=== PATIENT | male | born 1955 | race Caucasian/White ===

== ENCOUNTER → 2019-07-20 | Outpatient (CLI) | payer MEDICARE | END | disposition home or self-care (01) | LOC: RADMRIMAIN 07:15 | PROVIDERS: ATTEND Orthopaedic Surgery | DX: Z53.9 Procedure and treatment not carried out, unspecified reason (principal) ==

== ENCOUNTER → 2019-07-21 | Outpatient (CLI) | payer MEDICARE ==
--- NOTE | 2019-07-22 09:40 | MR ---
EXAMINATION TYPE: MR shoulder RT wo con DATE OF EXAM: 07/21/2019 COMPARISON: Outside x-ray dated 07/12/2019 HISTORY: Pain TECHNIQUE: Multiplanar, multisequence imaging of the right shoulder is performed without contrast. FINDINGS: Rotator Cuff: There is marked thickening and partial retraction of the distal 2.6 cm of the supraspinatus tendon co mpatible with severe tendinopathy and a 1.6 cm through thickness tear. Retraction is seen to the leve l of the medial margin of the greater tuberosity. Subscapularis tendon appears intact. Fluid signal seen adjacent to the subscapularis tendon and muscl e may represent fluid within the bursa and bursitis. Infraspinatus tendon demonstrates tendinopathy at the insertion of its anterior fibers. No through th ickness tear. Degenerative intrasubstance tear suspected at the insertion. Acromioclavicular Joint: There is hypertrophic arthropathy of the AC joint with mass effect and impin gement supraspinatus tendon. Glenohumeral Joint: Mild narrowing of the glenohumeral joint. There is a trace amount of fluid in the joint space. Ill-definition of the inferior glenohumeral ligament suggestive of strain. Partial tear not excluded. Labrum: Abnormal morphology in appearance to the anterior superior labrum extending posteriorly. Biceps Tendon: The long head of biceps is in normal location within bicipital groove. Increased fluid surrounding compatible tendinosis. Within the rotator interval there is marked thickening of the bic eps tendon compatible with severe tendinopathy and partial tear. Bone marrow signal: Benign cystic changes involving the head of the humerus. IMPRESSION: 1. Severe diffuse thickening and increased signal throughout the distal 2.6 cm of the supraspinatus t endon compatible with severe arthropathy and degenerative tear. There is a partial through thickness tear measuring 1.6 cm with partial retraction as discussed above. 2. At the insertion of the infraspinatus tendon there is thickening of the anterior fibers compatible severe tendinosis and partial tear. 3. Suspect SLAP tear. Additionally, within the rotator interval there is marked thickening and increa sed signal the biceps tendon compatible with severe tendinosis and partial tear. 4. Ill-definition of the inferior glenohumeral ligament may be secondary to motion correlate for liga mentous strain. Partial tear not excluded. 5. AC joint arthropathy with impingement.
== END | disposition home or self-care (01) ==
LOC: RADMRIMAIN 19:07
PROVIDERS: ATTEND Orthopaedic Surgery
DX: M75.111 Incomplete rotator cuff tear or rupture of right shoulder, not specified as traumatic (principal); M12.811 Other specific arthropathies, not elsewhere classified, right shoulder

== ENCOUNTER → 2019-07-29 | Outpatient (CLI) | payer MEDICARE ==
[2019-07-29 12:14] LABS: Basophils % (A) 1 %; Eosinophils # (A) 0.3 k/uL (0-0.7); Eosinophils % (A) 5 %; HCT 49.3 % (39.0-53.0); HGB 15.6 gm/dL (13.0-17.5); Lymphocytes # (A) 1.6 k/uL (1.0-4.8); Lymphocytes % (A) 29 %; MCH 30.5 pg (25.0-35.0); MCHC 31.6 g/dL (31.0-37.0); MCV 96.7 fL (80.0-100.0); Mean Platelet Volume 8.3; Monocytes # (A) 0.5 k/uL (0-1.0); Monocytes % (A) 9 %; Neutrophils # (A) 2.9 k/uL (1.3-7.7); Neutrophils % (A) 54 %; Platelet Count 183 k/uL (150-450); RBC 5.09 m/uL (4.30-5.90); RDW 13.3 % (11.5-15.5); WBC 5.4 k/uL (3.8-10.6)
[2019-07-29 12:20] LABS: Potassium 4.7 mmol/L (3.5-5.1)
== END | disposition home or self-care (01) ==
LOC: LABPAT 11:19
PROVIDERS: ATTEND Orthopaedic Surgery
DX: Z01.818 Encounter for other preprocedural examination (principal); Z01.812 Encounter for preprocedural laboratory examination; M75.41 Impingement syndrome of right shoulder; M75.01 Adhesive capsulitis of right shoulder
CPT/HCPCS: 36415; 80051; 85025; 93005

== ENCOUNTER 2019-08-03 13:45 | Day surgery (SDC) | payer MEDICARE ==
[2019-07-30 16:04] VITALS: BMI 25.1
--- NOTE | 2019-08-02 09:53 | HP ---
HISTORY AND PHYSICAL CHIEF COMPLAINT: Right shoulder pain. HISTORY OF PRESENT ILLNESS: The patient is a 64-year-old, right-hand dominant, retired gentleman who presents with right shoulder pain after an initial fall in August of 2018 in his garage. He has had multiple falls since. He is having pain with overhead use and activity. He notes it has progressively worsened. PAST MEDICAL HISTORY: Significant for cervical and lumbar degenerative disk disease. PAST SURGICAL HISTORY: Significant for inguinal hernia repair in addition to lumbar spine surgery. CURRENT MEDICATION: Ibuprofen. He denies drug allergies. FAMILY HISTORY: Significant for heart disease. SOCIAL HISTORY: Negative for current tobacco or alcohol use. 16 POINT REVIEW OF SYSTEMS: Otherwise reviewed and is noncontributory. PHYSICAL EXAMINATION: On examination, the patient is approximately 5 foot 10, 175 pounds of endomorphic habitus. HEENT: Exam is nonfocal. Neck is supple. On examination of his right shoulder, he is tender about the anterior subacromial space in the bicipital groove. He has moderate subacromial crepitus. Active range of motion forward elevation 90 degrees external rotation with arm at side 25 degrees internal rotation to the buttock. Passively I am able to forward elevate him to 104-95 degrees. Motor strength is 5-/5 for abduction and external rotation. Impingement test, Neer in the ER tests, and Speed test are positive. He has marked guarding. He has mild pain with cross-body abduction. His distal neurovascular appears intact in the right upper extremity. MRI report from 07/21/2019 shows AC joint arthritis along with a rotator cuff tear involving the supraspinatus with retraction. An an associated SLAP lesion is noted. IMPRESSION: 1. Right shoulder adhesive capsulitis. 2. Right shoulder impingement with symptomatic rotator cuff tear. 3. Right acromioclavicular joint arthritis. RECOMMENDATIONS: I talked to the patient at length regarding his condition along with treatment options. This point he remains quite symptomatic and limited because of pain, stiffness, and weakness. After thorough discussion, he opts to proceed with surgery. We will plan to proceed with right shoulder arthroscopic arthroscopy with subacromial decompression, rotator cuff repair versus debridement, acromioclavicular area, distal clavicular resection along with manipulation under anesthesia. We will likely perform that as an outpatient procedure. Risks and benefits were discussed at length in layman's terms. MMODL / IJN: [id number] /
[~2019-08-03 13:45] MED LIST: DEXAMETHASONE SOD PHOSPHATE 10 MG/ML 1 ML VIAL IV ONE; HYDROmorphone 0.5 MG/0.5 ML SYRINGE IVP PRN; LACTATED RINGERS 1,000 ML IV SCH; LIDOCAINE 1% 20 ML VIAL (10MG/ML) FOR IV START INTRADERMA PRN; ONDANSETRON 4 MG/2 ML VIAL IVP ONE; SCOPOLAMINE 1.5MG/72HR PATCH TRANSDERM ONE
[2019-08-03] MEDS ORDERED: MIDAZOLAM 2 MG/2 ML VIAL IVP ONE (14:47)
[2019-08-03] MEDS ORDERED: fentaNYL (PF) 50 MCG/ML 2 ML AMP IV ONE (14:48)
[2019-08-03] MEDS ORDERED: DEXAMETHASONE SOD PHOSPHATE 4 MG/ML 1 ML VIAL ONE (15:51)
[2019-08-03] MEDS ORDERED: MIDAZOLAM 2 MG/2 ML VIAL ONE (15:51)
[2019-08-03] MEDS ORDERED: ROPIVACAINE 5 MG/ML 30 ML VIAL ONE (15:51)
[2019-08-03] MEDS ORDERED: PHENYLEPHRINE-0.9% NACL SYG 1 MG/10 ML SYRINGE ONE (15:51)
[2019-08-03] MEDS ORDERED: LIDOCAINE 1% INJ 10MG/ML (20 ML MDV) ONE (15:51)
[2019-08-03] MEDS ORDERED: SUCCINYLCHOLINE CHLORIDE 100 MG/5 ML SYR IV ONE (15:51)
[2019-08-03] MEDS ORDERED: PROPOFOL 10 MG/ML 20 ML VIAL IV ONE (15:51)
[2019-08-03] MEDS ORDERED: fentaNYL (PF) 50 MCG/ML 2 ML AMP ONE (15:51)
[2019-08-03] MEDS ORDERED: EPINEPHrine (PF) 1 ML in SODIUM CHLORIDE 0.9% IRRIGATIO 3,000 ML IRRIGATION ONE ×8 (16:25)
--- NOTE | 2019-08-03 17:35 | P.OP ---
Date of Procedure: 08/03/19 Preoperative Diagnosis: Right shoulder adhesive capsulitis/symptomatic rotator cuff tear Postoperative Diagnosis: Same in addition to high-grade partial-thickness tear long head bicepsintra- articular, acromioclavicular joint arthritis. Procedure(s) Performed: Right shoulder arthroscopic subacromial decompression/distal clavicular resection/biceps tenotomy/rotator cuff repair/manipulation under anesthesia Implants: Arthrex 4.75 mm swivel lock anchor 2, 5.5 mm swivel lock anchor 2 Anesthesia: HERNANDO, regional Surgeon: Giorgio Summers Security Alarm Technician #1: Michelet Snider Estimated Blood Loss (ml): 10 Pathology: none sent Condition: stable Disposition: PACU Indications for Procedure: The patient's a 64-year-old male who presents with persistent/progressive right shoulder pain and stiffness after a previous injury despite conservative measures. He discussion of the risks and benefits of operative intervention versus continued conservative measures was made with patient. He opted to proceed with surgery. Operative risks to include infection, neurovascular injury, possible tendon rerupture, possible recurrence of stiffness and need for subsequent procedures was discussed. Informed consent was obtained. Operative Findings: As below Description of Procedure: The patient was brought to the operating room, and after induction of general anesthesia was placed in a beachchair position. A preoperative interscalene block was placed for postoperative analgesia. I examined the right shoulder. There was significant block to passive motion. Gentle manipulation was then performed first with the arm at the side obtaining 60 of external rotation and then full forward elevation. Moderate adhesions were encountered. The right upper extremity was prepped and draped in normal fashion. The bony outlines the acromion, distal clavicle, and coracoid process were outlined with a skin marker. The glenohumeral joint was inflated with 50 mL of saline utilizing a spinal needle from posterior approach. A posterior portal was made through a 5 mm skin incision 1 cm medial and inferior to the posterior lateral border time. A blunt trocar was used to easily into the joint. Diagnostic arthroscopy was performed. An anterior portal was made just lateral to the coracoid process entering the joint above the subscapularis tendon. The subscapularis tendon appeared to be intact. Anterior labrum was intact. The inferior recess was inspected. The posterior labrum was intact. There was a high-grade partial- thickness tear of the long head of the biceps involving interarticular portion. It was elected to proceed with release at this point. This was released from the superior labrum with electrocautery and was allowed to retract to the bicipital groove. On inspection the rotator cuff, a full-thickness tear involving the supraspinatus and a portion of the infraspinatus was noted measuring 4 cm. There was minimal retraction. A lateral portal was made 2 charlene timeters inferior to the anterior lateral border of the acromion. The rotator cuff was then easily brought back to the greater tuberosity. The soft tissue on the undersurface of the acromion was debrided with a motorized shaver and electrocautery clearly defining the anterior medial and lateral borders as well as the distal clavicle. An anterior inferior acromioplasty was performed with a motorized belinda starting anterolateral, then extending this posteriorly, then extending this medially. I converted to a flat acromion and this was verified in the posterior and lateral viewing portals. The distal 4 mm of the clavicle was resected utilizing a motorized bur as there were is significant arthritis and impingement on the subacromial space. The greater tuberosity was lightly decorticating with a shaver down to a bleeding bony surface. An accessory superior lateral portals made just off the lateral edge of the acromion for anchor placement. 2 anchors were then placed just off the articular surface with the appropriate starting awl. 4.75 mm anchors preloaded with #2 fiber tape were placed. Good purchase was obtained. These fiber tapes were then passed the rotator cuff with a scorpion suture passer. A lateral row was created crisscrossing these tapes. 5.5 mm swivel lock anchors x 2 were placed laterally. Good purchase was obtained. Final arthroscopic view showed adequate compression at the footprint. The arthroscope was then removed. The portals were closed with simple 3-0 nylon sutures. A sterile dressing was applied in addition to a sling. The patient was then awoken from general anesthesia and transferred to recovery room in good condition. Blood loss was estimated at 10 mL. No complications were incurred. Sponge and needle counts were correct in the case. Romario CABALLERO assisted and the major components of the case to include arm positioning, anchor placement, and rotator cuff repair.
[2019-08-03 17:39] VITALS: TEMP 97.4
[2019-08-03] MEDS ORDERED: LACTATED RINGERS 1,000 ML IV ONE (17:40)
[2019-08-03 18:45] VITALS: RESP 20
[2019-08-03 19:00] VITALS: BP 133/80; PULSE 84
== END 2019-08-03 19:12 | disposition home or self-care (01) ==
LOC: OR 13:45
PROVIDERS: ATTEND Orthopaedic Surgery
DX: S46.011A Strain of muscle(s) and tendon(s) of the rotator cuff of right shoulder, initial encounter (principal); S46.111A Strain of muscle, fascia and tendon of long head of biceps, right arm, initial encounter; W19.XXXA Unspecified fall, initial encounter; M75.01 Adhesive capsulitis of right shoulder; M19.011 Primary osteoarthritis, right shoulder; M50.30 Other cervical disc degeneration, unspecified cervical region; M51.36 Other intervertebral disc degeneration, lumbar region; Z79.1 Long term (current) use of non-steroidal anti-inflammatories (NSAID); Z82.49 Family history of ischemic heart disease and other diseases of the circulatory system; H91.90 Unspecified hearing loss, unspecified ear; Z79.899 Other long term (current) drug therapy
CPT/HCPCS: 64415; 76942; 29826; 29827; 29824; C1713 ×2; C1894; J2250; J1100 ×2; J0690; J2405; J0171; J2001; J3010; J2795; J2370; J0330; J2704

== ENCOUNTER 2020-04-29 13:47 | Emergency (ER) | payer MEDICARE ==
--- NOTE | 2020-04-29 14:27 | XR ---
EXAMINATION TYPE: XR chest 2V DATE OF EXAM: 04/29/2020 COMPARISON: NONE HISTORY: Chest pain. TECHNIQUE: Frontal and lateral views of the chest are obtained. FINDINGS: There is no focal air space opacity, pleural effusion, or pneumothorax seen. The cardiac silhouette size is within normal limits. The osseous structures are intact. IMPRESSION: No acute cardiopulmonary process.
[2020-04-29 14:37] LABS: Basophils % (A) 0 %; Eosinophils # (A) 0.1 k/uL (0-0.7); Eosinophils % (A) 2 %; HCT 49.9 % (39.0-53.0); HGB 15.7 gm/dL (13.0-17.5); Lymphocytes # (A) 1.5 k/uL (1.0-4.8); Lymphocytes % (A) 24 %; MCH 30.2 pg (25.0-35.0); MCHC 31.4 g/dL (31.0-37.0); MCV 96.1 fL (80.0-100.0); Mean Platelet Volume 8.9; Monocytes # (A) 0.4 k/uL (0-1.0); Monocytes % (A) 6 %; Neutrophils # (A) 4.1 k/uL (1.3-7.7); Neutrophils % (A) 67 %; Platelet Count 205 k/uL (150-450); RBC 5.19 m/uL (4.30-5.90); RDW 13.3 % (11.5-15.5); WBC 6.2 k/uL (3.8-10.6)
[2020-04-29 14:53] LABS: Potassium 4.6 mmol/L (3.5-5.1)
--- NOTE | 2020-04-29 14:53 | ED ---
General Adult HPI - General Chief complaint: Chest Pain Stated complaint: chest pain Time Seen by Provider: 04/29/20 13:53 Source: patient, RN notes reviewed, old records reviewed Mode of arrival: ambulatory Limitations: physical limitation - History of Present Illness Initial comments: 64-year-old male presenting for evaluation of cough, chest congestion and tightness. Patient was sent from urgent care for evaluation of chest tightness concern for ACS. He has had no chest pain. No diaphoresis no vomiting. He states he's felt somewhat winded with exertion. He has no history of CAD, no history of asthma or COPD. No history of congestive heart failure. He is fairly healthy. Denies fever. Denies nasal congestion or sore throat. - Related Data Home Medications Medication Instructions Recorded Confirmed Tadalafil [Cialis] 5 mg PO DAILY 07/30/19 07/30/19 Cholecalciferol [Vitamin D3 (25 2,000 unit PO DAILY 04/29/20 04/29/20 Mcg = 1000 Iu)] Magnesium Gluconate [Magonate] 500 mg PO DAILY 04/29/20 04/29/20 Vit C/Ascorb Sod/Multivit-Min 500 mg PO DAILY 04/29/20 04/29/20 [Emergen-C 500 mg Chewable Tab] Zinc 50 mg PO DAILY 04/29/20 04/29/20 Allergies Allergy/AdvReac Type Severity Reaction Status Date / Time No Known Allergies Allergy Verified 04/29/20 15:38 Review of Systems ROS Statement: Those systems with pertinent positive or pertinent negative responses have been documented in the HPI. ROS Other: All systems not noted in ROS Statement are negative. Past Medical History Past Medical History: Hearing Disorder / Deafness, Osteoarthritis (OA) History of Any Multi-Drug Resistant Organisms: None Reported Past Surgical History: Back Surgery, Hernia Repair, Tonsillectomy Additional Past Surgical History / Comment(s): LAMINECTOMY, BACK FUSION , HERNIA REPAIR X3 Past Anesthesia/Blood Transfusion Reactions: No Reported Reaction Past Psychological History: No Psychological Hx Reported Smoking Status: Never smoker Past Alcohol Use History: Rare Past Drug Use History: None Reported - Past Family History Mother Family Medical History: No Reported History General Exam Limitations: physical limitation General appearance: alert, in no apparent distress Head exam: Present: atraumatic, normocephalic Eye exam: Present: normal appearance, PERRL ENT exam: Present: normal exam Neck exam: Present: normal inspection. Absent: tenderness, meningismus Respiratory exam: Present: decreased breath sounds (Diminished on the right). Absent: respiratory distress Cardiovascular Exam: Present: regular rate, normal rhythm GI/Abdominal exam: Present: soft. Absent: distended, tenderness, guarding Extremities exam: Present: normal inspection, normal capillary refill. Absent: pedal edema, calf tenderness Neurological exam: Present: alert, oriented X3, CN II-XII intact. Absent: motor sensory deficit Psychiatric exam: Present: normal affect, normal mood Skin exam: Present: warm, dry, intact. Absent: cyanosis, diaphoretic Course Vital Signs 04/29/20 04/29/20 13:49 14:35 Temperature 97.1 F L Pulse Rate 72 Pulse Rate [ 75 Active Directory Specialist ] Respiratory 18 Rate Blood Pressure 137/78 O2 Sat by Pulse 97 Oximetry EKG Findings - EKG Comments: EKG Findings:: EKG: Sinus rhythm with first-degree AV block, rate of 67, CT interval 216, QRS duration 92, QTC 426, no ST segment elevation. Medical Decision Making - Medical Decision Making 64-year-old male with cough congestion, exertional dyspnea. Patient well- appearing with stable vitals, no hypoxia. Chest x-rays negative for focal pneumonia or acute findings. Normal CBC, normal CMP, negative troponin, negative BNP, patient is Rodas virus positive. Overall he states his symptoms have improved although still present for the past one week. He is told to quarantine for 14 days. He will return with any worsening dyspnea, worsening symptoms. and patient with discharge. - Lab Data Result diagrams: 04/29/20 14:17 04/29/20 14:17 Lab Results 04/29/20 04/29/20 04/29/20 Range/Units 14:17 14:17 14:17 WBC 6.2 (3.8-10.6) k/uL RBC 5.19 (4.30-5.90) m/uL Hgb 15.7 (13.0-17.5) gm/dL Hct 49.9 (39.0-53.0) % MCV 96.1 (80.0-100.0) fL MCH 30.2 (25.0-35.0) pg MCHC 31.4 (31.0-37.0) g/dL RDW 13.3 (11.5-15.5) % Plt Count 205 (150-450) k/uL MPV 8.9 Neutrophils % 67 % Lymphocytes % 24 % Monocytes % 6 % Eosinophils % 2 % Basophils % 0 % Neutrophils # 4.1 (1.3-7.7) k/uL Lymphocytes # 1.5 (1.0-4.8) k/uL Monocytes # 0.4 (0-1.0) k/uL Eosinophils # 0.1 (0-0.7) k/uL Basophils # 0.0 (0-0.2) k/uL PT 10.3 (9.0-12.0) sec INR 1.0 (<1.2) APTT 24.1 (22.0-30.0) sec Sodium 138 (137-145) mmol/L Potassium 4.6 (3.5-5.1) mmol/L Chloride 106 (98-107) mmol/L Carbon Dioxide 23 (22-30) mmol/L Anion Gap 9 mmol/L BUN 28 H (9-20) mg/dL Creatinine 0.75 (0.66-1.25) mg/dL Est GFR (CKD-EPI)AfAm >90 (>60 ml/min/1.73 sqM) Est GFR (CKD-EPI)NonAf >90 (>60 ml/min/1.73 sqM) Glucose 97 (74-99) mg/dL Calcium 8.9 (8.4-10.2) mg/dL Magnesium 2.1 (1.6-2.3) mg/dL Total Bilirubin 0.9 (0.2-1.3) mg/dL AST 53 (17-59) U/L ALT 45 (4-49) U/L Alkaline Phosphatase 79 (38-126) U/L Troponin I (0.000-0.034) ng/mL NT-Pro-B Natriuret Pep pg/mL Total Protein 7.8 (6.3-8.2) g/dL Albumin 4.2 (3.5-5.0) g/dL Coronavirus (PCR) (Not Detectd) 04/29/20 04/29/20 04/29/20 Range/Units 14:17 14:17 14:17 WBC (3.8-10.6) k/uL RBC (4.30-5.90) m/uL Hgb (13.0-17.5) gm/dL Hct (39.0-53.0) % MCV (80.0-100.0) fL MCH (25.0-35.0) pg MCHC (31.0-37.0) g/dL RDW (11.5-15.5) % Plt Count (150-450) k/uL MPV Neutrophils % % Lymphocytes % % Monocytes % % Eosinophils % % Basophils % % Neutrophils # (1.3-7.7) k/uL Lymphocytes # (1.0-4.8) k/uL Monocytes # (0-1.0) k/uL Eosinophils # (0-0.7) k/uL Basophils # (0-0.2) k/uL PT (9.0-12.0) sec INR (<1.2) APTT (22.0-30.0) sec Sodium (137-145) mmol/L Potassium (3.5-5.1) mmol/L Chloride (98-107) mmol/L Carbon Dioxide (22-30) mmol/L Anion Gap mmol/L BUN (9-20) mg/dL Creatinine (0.66-1.25) mg/dL Est GFR (CKD-EPI)AfAm (>60 ml/min/1.73 sqM) Est GFR (CKD-EPI)NonAf (>60 ml/min/1.73 sqM) Glucose (74-99) mg/dL Calcium (8.4-10.2) mg/dL Magnesium (1.6-2.3) mg/dL Total Bilirubin (0.2-1.3) mg/dL AST (17-59) U/L ALT (4-49) U/L Alkaline Phosphatase (38-126) U/L Troponin I 0.016 (0.000-0.034) ng/mL NT-Pro-B Natriuret Pep 116 pg/mL Total Protein (6.3-8.2) g/dL Albumin (3.5-5.0) g/dL Coronavirus (PCR) Detected A (Not Detectd) Disposition Clinical Impression: 2019 novel coronavirus disease (COVID-19) Disposition: HOME SELF-CARE Condition: Fair Instructions (If sedation given, give patient instructions): Viral Pneumonia (ED), Viral Syndrome (ED) Additional Instructions: You have been diagnosed with coronavirus. Please return to emergency department with worsening cough or difficulty breathing, any worsening shortness of breath. Please quarantine yourself for 14 days. Is patient prescribed a controlled substance at d/c from ED?: No Referrals: Shazia Cleveland DO [Primary Care Provider] - 1-2 days Time of Disposition: 15:52
[2020-04-29 14:54] LABS: ALT 45 U/L (4-49); AST 53 U/L (17-59); African American GFR (CKD) >90 (>60 ml/min/1.73 sqM); Albumin 4.2 g/dL (3.5-5.0); Alkaline Phosphatase 79 U/L (38-126); Anion Gap 9 mmol/L; Blood Urea Nitrogen 28 mg/dL (9-20); Calcium 8.9 mg/dL (8.4-10.2); Carbon Dioxide 23 mmol/L (22-30); Chloride 106 mmol/L (98-107); Glucose 97 mg/dL (74-99); Magnesium 2.1 mg/dL (1.6-2.3); Non-African American GFR(CKD) >90 (>60 ml/min/1.73 sqM); Sodium 138 mmol/L (137-145); Total Bilirubin 0.9 mg/dL (0.2-1.3); Total Protein 7.8 g/dL (6.3-8.2)
[2020-04-29 15:04] LABS: Partial Thromboplastin Time 24.1 sec (22.0-30.0); Prothrombin Time 10.3 sec (9.0-12.0)
[2020-04-29 16:26] VITALS: BP 127/70; PULSE 79; RESP 19; TEMP 98.3
== END 2020-04-29 16:26 | disposition home or self-care (01) ==
LOC: EC 13:47
DX: U07.1 COVID-19 (principal); Z79.899 Other long term (current) drug therapy; Z98.1 Arthrodesis status
CPT/HCPCS: 36415; 71046; 80053; 83735; 83880; 84484; 85025; 85610; 85730; 87635; 93005; 99285

== ENCOUNTER 2022-11-07 01:33 | Emergency (ER) | payer MEDICARE ==
[2022-11-07 01:41] VITALS: TEMP 97.6
[2022-11-07 05:41] LABS: Appearance,Urine Clear (Clear); Bilirubin,Urine Negative (Negative); Blood,Urine Negative (Negative); Color,Urine Yellow; Glucose,Urine (UA) Negative (Negative); Ketones,Urine 2+ (Negative); Leukocyte Esterase,Urine Negative (Negative); Nitrite,Urine Negative (Negative); PH, Urine 5.5 (5.0-8.0); Protein,Urine Trace (Negative); Specific Gravity,Urine 1.023 (1.001-1.035); Urobilinogen,Urine <2.0 mg/dL (<2.0)
[2022-11-07 05:50] LABS: Basophils % (A) 0 %; Eosinophils # (A) 0.1 k/uL (0-0.7); Eosinophils % (A) 2 %; HGB 15.6 gm/dL (13.0-17.5); Lymphocytes # (A) 0.9 k/uL (1.0-4.8); Lymphocytes % (A) 12 %; MCHC 32.5 g/dL (31.0-37.0); MCV 95.4 fL (80.0-100.0); Monocytes # (A) 0.4 k/uL (0-1.0); Monocytes % (A) 6 %; Neutrophils # (A) 5.7 k/uL (1.3-7.7); Neutrophils % (A) 79 %; Platelet Count 162 k/uL (150-450); RBC 5.03 m/uL (4.30-5.90); RDW 13.8 % (11.5-15.5); WBC 7.2 k/uL (3.8-10.6)
[2022-11-07 05:56] LABS: ALT 23 U/L (4-49); AST 29 U/L (17-59); African American GFR (CKD) >90 (>60 ml/min/1.73 sqM); Albumin 3.6 g/dL (3.5-5.0); Alkaline Phosphatase 66 U/L (38-126); Anion Gap 9 mmol/L; Blood Urea Nitrogen 23 mg/dL (9-20); Calcium 8.5 mg/dL (8.4-10.2); Carbon Dioxide 22 mmol/L (22-30); Chloride 104 mmol/L (98-107); Glucose 108 mg/dL (74-99); Non-African American GFR(CKD) >90 (>60 ml/min/1.73 sqM); Potassium 3.8 mmol/L (3.5-5.1); Sodium 135 mmol/L (137-145); Total Bilirubin 0.9 mg/dL (0.2-1.3); Total Protein 6.5 g/dL (6.3-8.2)
[2022-11-07] MEDS ORDERED: SODIUM CHLORIDE 0.9% 1,000 ML IV ONE (06:18)
[2022-11-07] MEDS ORDERED: ONDANSETRON 4 MG/2 ML VIAL IVP STA (06:19)
--- NOTE | 2022-11-07 06:44 | ED ---
General Adult HPI - General Chief complaint: Urogenital Stated complaint: ABD Pain Time Seen by Provider: 11/07/22 06:08 Source: patient, RN notes reviewed Mode of arrival: wheelchair Limitations: no limitations - History of Present Illness Initial comments: 67-year-old male presents emergency Department with chief complaint of right- sided abdominal pain. Patient states that he had a hernia repair 6 years ago states she's had some on-and-off issues but states yesterday he started developing increasing pain states he had some mild diarrhea within the pain worsened. Patient also noted to be slight nausea, headache. Patient states he did not eat or drink much yesterday but did try taking some ibuprofen for discomfort. Patient states that he of metal night bathroom and states he felt very lightheaded felt there is a pass out and which she has passed out several times past but is concerned once is increasing pain on the right side. He has no dysuria no hematuria - Related Data Home Medications Medication Instructions Recorded Confirmed Cholecalciferol [Vitamin D3 (25 2,000 unit PO DAILY 04/29/20 04/29/20 Mcg = 1000 Iu)] Magnesium Gluconate [Magonate] 500 mg PO DAILY 04/29/20 04/29/20 Vit C/Ascorb Sod/Multivit-Min 500 mg PO DAILY 04/29/20 04/29/20 [Emergen-C 500 mg Chewable Tab] Zinc 50 mg PO DAILY 04/29/20 04/29/20 tadalafiL [Cialis] 10 mg PO DAILY 04/29/20 04/29/20 Allergies Allergy/AdvReac Type Severity Reaction Status Date / Time No Known Allergies Allergy Verified 11/07/22 01:38 Review of Systems ROS Statement: Those systems with pertinent positive or pertinent negative responses have been documented in the HPI. ROS Other: All systems not noted in ROS Statement are negative. Past Medical History Past Medical History: Hearing Disorder / Deafness, Osteoarthritis (OA) History of Any Multi-Drug Resistant Organisms: None Reported Past Surgical History: Back Surgery, Hernia Repair, Tonsillectomy Additional Past Surgical History / Comment(s): LAMINECTOMY, BACK FUSION , HERNIA REPAIR X3 Past Anesthesia/Blood Transfusion Reactions: No Reported Reaction Past Psychological History: No Psychological Hx Reported Smoking Status: Never smoker Past Alcohol Use History: Rare Past Drug Use History: None Reported - Past Family History Mother Family Medical History: No Reported History General Exam Limitations: no limitations General appearance: alert, in no apparent distress Head exam: Present: atraumatic, normocephalic, normal inspection Eye exam: Present: normal appearance, PERRL, EOMI. Absent: scleral icterus, conjunctival injection, periorbital swelling Respiratory exam: Present: normal lung sounds bilaterally. Absent: respiratory distress, wheezes, rales, rhonchi, stridor Cardiovascular Exam: Present: regular rate, normal rhythm, normal heart sounds. Absent: systolic murmur, diastolic murmur, rubs, gallop, clicks GI/Abdominal exam: Present: soft, tenderness (Moderate right-sided), normal bowel sounds. Absent: distended, guarding, rebound, rigid Back exam: Absent: CVA tenderness (R), CVA tenderness (L) Neurological exam: Present: alert Skin exam: Present: warm, dry, intact, normal color. Absent: rash Course Vital Signs 11/07/22 11/07/22 11/07/22 01:34 03:41 07:48 Temperature 97.6 F 97.6 F Pulse Rate 66 75 78 Respiratory 18 16 18 Rate Blood Pressure 116/69 113/76 120/77 O2 Sat by Pulse 100 97 99 Oximetry Medical Decision Making - Medical Decision Making Was pt. sent in by a medical professional or institution (, PA, MASONRY TEACHER, urgent care, hospital, or half-way...) When possible be specific @ -No Did you speak to anyone other than the patient for history (EMS, parent, family, police, friend...)? What history was obtained from this source @ -No Did you review nursing and triage notes (agree or disagree)? Why? @ -I reviewed and agree with nursing and triage notes Were old charts reviewed (outside hosp., previous admission, EMS record, old EKG, old radiological studies, urgent care reports/EKG's, half-way records)? Report findings @ -No old charts were reviewed Differential Diagnosis (chest pain, altered mental status, abdominal pain women, abdominal pain men, vaginal bleeding, weakness, fever, dyspnea, syncope, headache, dizziness, GI bleed, back pain, seizure, CVA, palpatations, mental health, musculoskeletal)? @ -nDifferential Abdominal Pain Men: Appendicitis, cholecystitis, diverticulosis, ischemic bowel, pancreatitis, hepatitis, UTI, gastroenteritis, AAA, incarcerated hernia, bowel obstruction, constipation, inflammatory bowel, hepatitis, peptic ulcer disease, splenic infarction, perforated viscus, testicular torsion, this is not meant to be an all-inclusive listle EKG interpreted by me (3pts min.). @ -None X-rays interpreted by me (1pt min.). @ -None done CT interpreted by me (1pt min.). @ -CT of abdomen and pelvis shows enlarged prostate, otherwise no acute right lower quadrant findings there is small umbilical hernia noted U/S interpreted by me (1pt. min.). @ -None done What testing was considered but not performed or refused? (CT, X-rays, U/S, labs)? Why? @ -None What meds were considered but not given or refused? Why? @ -None Did you discuss the management of the patient with other professionals (professionals i.e. , PA, MASONRY TEACHER, lab, RT, psych nurse, 7th grade social studies teacher, poly packer and heat sealer, teacher, boat officer, child welfare caseworker)? Give summary @ -No Was smoking cessation discussed for >3mins.? @ -No Was critical care preformed (if so, how long)? @ -No Were there social determinants of health that impacted care today? How? (Homelessness, low income, unemployed, alcoholism, drug addiction, transportation, low edu. Level, literacy, decrease access to med. care, retirement, rehab)? @ -No Was there de-escalation of care discussed even if they declined (Discuss DNR or withdrawal of care, Hospice)? DNR status @ -No What co-morbidities impacted this encounter? (DM, HTN, Smoking, COPD, CAD, Cancer, CVA, ARF, Chemo, Hep., AIDS, mental health diagnosis, sleep apnea, morbid obesity)? @ -None Was patient admitted / discharged? Hospital course, mention meds given and route, prescriptions, significant lab abnormalities, going to OR and other pertinent info. @ -Discharged patient's laboratory studies and urinalysis shows mild evidence of dehydration patient was hydrated with IV fluids does feel greatly improved he may have underlying enteritis a CT does not show any acute infections. Patient does have enlarged prostate advise any to follow-up for recheck Undiagnosed new problem with uncertain prognosis? @ -No Drug Therapy requiring intensive monitoring for toxicity (Heparin, Nitro, Insulin, Cardizem)? @ -No Were any procedures done? @ -No Diagnosis/symptom? @ -Abdominal pain, enteritis Acute, or Chronic, or Acute on Chronic? @ -Acute Uncomplicated (without systemic symptoms) or Complicated (systemic symptoms)? @ -Uncomplicated Side effects of treatment? @ -No Exacerbation, Progression, or Severe Exacerbation? @ -No Poses a threat to life or bodily function? How? (Chest pain, USA, VA, pneumonia, PE, COPD, DKA, ARF, appy, cholecystitis, CVA, Diverticulitis, Homicidal, Suicidal, threat to staff... and all critical care pts) @ -No - Lab Data Result diagrams: 11/07/22 05:18 11/07/22 05:18 Lab Results 11/07/22 11/07/22 11/07/22 Range/Units 04:30 05:18 05:18 WBC 7.2 (3.8-10.6) k/uL RBC 5.03 (4.30-5.90) m/uL Hgb 15.6 (13.0-17.5) gm/dL Hct 48.0 (39.0-53.0) % MCV 95.4 (80.0-100.0) fL MCH 31.0 (25.0-35.0) pg MCHC 32.5 (31.0-37.0) g/dL RDW 13.8 (11.5-15.5) % Plt Count 162 (150-450) k/uL MPV 9.0 Neutrophils % 79 % Lymphocytes % 12 % Monocytes % 6 % Eosinophils % 2 % Basophils % 0 % Neutrophils # 5.7 (1.3-7.7) k/uL Lymphocytes # 0.9 L (1.0-4.8) k/uL Monocytes # 0.4 (0-1.0) k/uL Eosinophils # 0.1 (0-0.7) k/uL Basophils # 0.0 (0-0.2) k/uL Sodium 135 L (137-145) mmol/L Potassium 3.8 (3.5-5.1) mmol/L Chloride 104 (98-107) mmol/L Carbon Dioxide 22 (22-30) mmol/L Anion Gap 9 mmol/L BUN 23 H (9-20) mg/dL Creatinine 0.70 (0.66-1.25) mg/dL Est GFR (CKD-EPI)AfAm >90 (>60 ml/min/1.73 sqM) Est GFR (CKD-EPI)NonAf >90 (>60 ml/min/1.73 sqM) Glucose 108 H (74-99) mg/dL Plasma Lactic Acid Manohar (0.7-2.0) mmol/L Calcium 8.5 (8.4-10.2) mg/dL Total Bilirubin 0.9 (0.2-1.3) mg/dL AST 29 (17-59) U/L ALT 23 (4-49) U/L Alkaline Phosphatase 66 (38-126) U/L Total Protein 6.5 (6.3-8.2) g/dL Albumin 3.6 (3.5-5.0) g/dL Urine Color Yellow Urine Appearance Clear (Clear) Urine pH 5.5 (5.0-8.0) Ur Specific Frederick 1.023 (1.001-1.035) Urine Protein Trace H (Negative) Urine Glucose (UA) Negative (Negative) Urine Ketones 2+ H (Negative) Urine Blood Negative (Negative) Urine Nitrite Negative (Negative) Urine Bilirubin Negative (Negative) Urine Urobilinogen <2.0 (<2.0) mg/dL Ur Leukocyte Esterase Negative (Negative) 11/07/22 Range/Units 05:18 WBC (3.8-10.6) k/uL RBC (4.30-5.90) m/uL Hgb (13.0-17.5) gm/dL Hct (39.0-53.0) % MCV (80.0-100.0) fL MCH (25.0-35.0) pg MCHC (31.0-37.0) g/dL RDW (11.5-15.5) % Plt Count (150-450) k/uL MPV Neutrophils % % Lymphocytes % % Monocytes % % Eosinophils % % Basophils % % Neutrophils # (1.3-7.7) k/uL Lymphocytes # (1.0-4.8) k/uL Monocytes # (0-1.0) k/uL Eosinophils # (0-0.7) k/uL Basophils # (0-0.2) k/uL Sodium (137-145) mmol/L Potassium (3.5-5.1) mmol/L Chloride (98-107) mmol/L Carbon Dioxide (22-30) mmol/L Anion Gap mmol/L BUN (9-20) mg/dL Creatinine (0.66-1.25) mg/dL Est GFR (CKD-EPI)AfAm (>60 ml/min/1.73 sqM) Est GFR (CKD-EPI)NonAf (>60 ml/min/1.73 sqM) Glucose (74-99) mg/dL Plasma Lactic Acid Manohar 0.9 (0.7-2.0) mmol/L Calcium (8.4-10.2) mg/dL Total Bilirubin (0.2-1.3) mg/dL AST (17-59) U/L ALT (4-49) U/L Alkaline Phosphatase (38-126) U/L Total Protein (6.3-8.2) g/dL Albumin (3.5-5.0) g/dL Urine Color Urine Appearance (Clear) Urine pH (5.0-8.0) Ur Specific Frederick (1.001-1.035) Urine Protein (Negative) Urine Glucose (UA) (Negative) Urine Ketones (Negative) Urine Blood (Negative) Urine Nitrite (Negative) Urine Bilirubin (Negative) Urine Urobilinogen (<2.0) mg/dL Ur Leukocyte Esterase (Negative) Disposition Clinical Impression: Enteritis, Abdominal pain, Enlarged prostate Disposition: HOME SELF-CARE Condition: Stable Instructions (If sedation given, give patient instructions): Abdominal Pain (ED) Additional Instructions: Please return to the Emergency Department if symptoms worsen or any other concerns. Is patient prescribed a controlled substance at d/c from ED?: No Referrals: Jose Salcedo MD [Primary Care Provider] - 1-2 days Mohit Hodge MD [STAFF PHYSICIAN] - 1-2 days Time of Disposition: 07:40
--- NOTE | 2022-11-07 07:27 | CT ---
EXAMINATION TYPE: CT abdomen pelvis w con CT DLP: 904 mGycm, Automated exposure control for dose reduction was used. DATE OF EXAM: 11/07/2022 6:55 AM COMPARISON: None CLINICAL INDICATION:Male, 67 years old with history of pain; RLQ pain, groin pain TECHNIQUE: Axial CT of the abdomen and pelvis. Sagittal and coronal reformats were created on a [employer] workstation. Contrast used:100 ml mL of Isovue 300 with IV Contrast, Oral contrast used: without Oral Contrast FINDINGS: LOWER CHEST: Unremarkable ABDOMEN LIVER: Unremarkable GALLBLADDER AND BILE DUCTS: Unremarkable. PANCREAS: Unremarkable. SPLEEN: Unremarkable. ADRENAL GLANDS: Unremarkable. KIDNEYS AND URETERS: No evidence of hydronephrosis or renal calculus. The ureters are unremarkable. PELVIS BLADDER: Unremarkable REPRODUCTIVE: Prostate is enlarged in size measuring 6.1 cm in transverse dimension. Median lobe hype rtrophy changes are present. ABDOMEN & PELVIS STOMACH AND BOWEL: No evidence of bowel obstruction. Scattered colonic diverticula are present. The a ppendix is normal. PERITONEUM/RETROPERITONEUM: No evidence of pneumoperitoneum or free fluid. VASCULATURE: Mild atherosclerotic calcifications are present throughout the abdominal aorta and its b ranches. No evidence of aortic aneurysm. MUSCULOSKELETAL: No acute osseous abnormalities. Moderate disc degeneration changes are present throu ghout the thoracolumbar spine. Fixation changes to the spine hardware appears intact. LYMPH NODES: No gross evidence for lymphadenopathy. SOFT TISSUE/ABDOMINAL WALL: Fat-containing umbilical hernia. No evidence of inguinal hernia. IMPRESSION: 1. No evidence for acute process. The appendix is normal. No obstructive uropathy. No evidence for i nguinal hernia or acute right growing process. 2. Prostatomegaly with median lobe hypertrophy changes, correlate with serum PSA. 3. Colonic diverticulosis.
[2022-11-07 07:56] VITALS: BP 120/77; PULSE 78; RESP 18
== END 2022-11-07 07:56 | disposition home or self-care (01) ==
LOC: EC 01:33
DX: K52.9 Noninfective gastroenteritis and colitis, unspecified (principal); N40.0 Benign prostatic hyperplasia without lower urinary tract symptoms; M19.90 Unspecified osteoarthritis, unspecified site; Z79.899 Other long term (current) drug therapy
CPT/HCPCS: 36415; 80053; 83605; 85025; 81003; 74177; 99284; 96374; 96361; J2405; Q9967

== ENCOUNTER 2024-09-11 00:39 | Inpatient (IN) | payer MEDICARE ==
--- NOTE | 2024-09-11 01:03 | ED ---
General Adult HPI - General Chief complaint: Chest Pain Stated complaint: Chest Pain Time Seen by Provider: 09/11/24 00:44 Source: patient, RN notes reviewed, old records reviewed Mode of arrival: ambulatory Limitations: no limitations - History of Present Illness Initial comments: 69-year-old male presenting for evaluation of chest pain which she describes as a central chest pressure. Patient states he has had some mild discomfort over the past several days but 45 minutes prior to arrival he developed more severe pain and discomfort. Patient has no prior history of CAD. Pain radiates to the bilateral upper extremities. - Related Data Home Medications Medication Instructions Recorded Confirmed Cholecalciferol [Vitamin D3 (25 2,000 unit PO DAILY 04/29/20 04/29/20 Mcg = 1000 Iu)] Magnesium Gluconate [Magonate] 500 mg PO DAILY 04/29/20 04/29/20 Vit C/Ascorb Sod/Multivit-Min 500 mg PO DAILY 04/29/20 04/29/20 [Emergen-C 500 mg Chewable Tab] Zinc 50 mg PO DAILY 04/29/20 04/29/20 tadalafiL [Cialis] 10 mg PO DAILY 04/29/20 04/29/20 Allergies Allergy/AdvReac Type Severity Reaction Status Date / Time No Known Allergies Allergy Verified 09/11/24 00:42 Review of Systems ROS Statement: Those systems with pertinent positive or pertinent negative responses have been documented in the HPI. ROS Other: All systems not noted in ROS Statement are negative. Past Medical History Past Medical History: Hearing Disorder / Deafness, Osteoarthritis (OA) History of Any Multi-Drug Resistant Organisms: None Reported Past Surgical History: Back Surgery, Hernia Repair, Tonsillectomy Additional Past Surgical History / Comment(s): LAMINECTOMY, BACK FUSION , HERNIA REPAIR X3 Past Anesthesia/Blood Transfusion Reactions: No Reported Reaction Past Psychological History: No Psychological Hx Reported Smoking Status: Never smoker Past Alcohol Use History: Rare Past Drug Use History: None Reported - Past Family History Mother Family Medical History: No Reported History General Exam Limitations: no limitations General appearance: alert, in distress Head exam: Present: atraumatic, normocephalic Eye exam: Present: normal appearance, PERRL ENT exam: Present: normal exam Neck exam: Present: normal inspection. Absent: tenderness, meningismus Respiratory exam: Present: normal lung sounds bilaterally. Absent: respiratory distress Cardiovascular Exam: Present: regular rate, normal rhythm GI/Abdominal exam: Present: soft. Absent: distended, tenderness, guarding Extremities exam: Present: normal inspection, normal capillary refill Neurological exam: Present: alert, oriented X3, CN II-XII intact. Absent: motor sensory deficit Psychiatric exam: Present: anxious Skin exam: Present: diaphoretic Course Vital Signs 09/11/24 09/11/24 09/11/24 00:40 01:00 01:20 Temperature 97.4 F L 98 F Pulse Rate 87 95 98 Pulse Rate [ Center Consultant ] Respiratory 18 21 16 Rate Blood Pressure 167/88 146/91 120/81 Blood Pressure [Right Arm] O2 Sat by Pulse 100 99 100 Oximetry 09/11/24 09/11/24 09/11/24 01:25 01:30 01:35 Temperature Pulse Rate Pulse Rate [ 98 66 80 Center Consultant ] Respiratory 16 16 16 Rate Blood Pressure Blood Pressure 110/66 98/84 110/74 [Right Arm] O2 Sat by Pulse 95 97 97 Oximetry 09/11/24 01:40 Temperature Pulse Rate 92 Pulse Rate [ Center Consultant ] Respiratory 186 H Rate Blood Pressure 90/78 Blood Pressure [Right Arm] O2 Sat by Pulse 95 Oximetry Medical Decision Making - Medical Decision Making Was pt. sent in by a medical professional or institution (, PA, YIELD ENGINEER, urgent care, hospital, or fci...) When possible be specific @ -No Did you speak to anyone other than the patient for history (EMS, parent, family, police, friend...)? What history was obtained from this source @ -No Did you review nursing and triage notes (agree or disagree)? Why? @ -I reviewed and agree with nursing and triage notes Were old charts reviewed (outside hosp., previous admission, EMS record, old EKG, old radiological studies, urgent care reports/EKG's, fci records)? Report findings @ -No old charts were reviewed Differential Chest Pain: Stable Angina, Unstable Angina, STEMI, NSTEMI Aortic Dissection, Pneumothorax, Musculoskeletal, Esophageal Spasm GERD, Cholecystitis, Pancreatitis, Zoster, this is not meant to be an all-inclusive list. EKG interpreted by me (3pts min.). @ -ST segment depression across the precordial leads sinus rhythm with a rate of 97, AK interval 212, QRS duration 98, QTc 410 X-rays interpreted by me (1pt min.). @ -Chest x-ray negative for pneumothorax, no acute findings CT interpreted by me (1pt min.). @ -None done U/S interpreted by me (1pt. min.). @ -None done What testing was considered but not performed or refused? (CT, X-rays, U/S, labs)? Why? @ -None What meds were considered but not given or refused? Why? @ -None Did you discuss the management of the patient with other professionals (professionals i.e. , PA, YIELD ENGINEER, lab, RT, psych nurse, licensed social worker, stem lead former, teacher, ict help desk officer, correctional casework specialist)? Give summary @ -Case discussed with Dr. Joe who is agreeable to [employer] [facility] activation for ischemic EKG in the setting of typical symptoms. Was smoking cessation discussed for >3mins.? @ -No Was critical care preformed (if so, how long)? @ -[Yes, 35 minutes Were there social determinants of health that impacted care today? How? (Homelessness, low income, unemployed, alcoholism, drug addiction, transportation, low edu. Level, literacy, decrease access to med. care, snf, rehab)? @ -No Was there de-escalation of care discussed even if they declined (Discuss DNR or withdrawal of care, Hospice)? DNR status @ -No What co-morbidities impacted this encounter? (DM, HTN, Smoking, COPD, CAD, Cancer, CVA, ARF, Chemo, Hep., AIDS, mental health diagnosis, sleep apnea, morbid obesity)? @ -None Was patient admitted / discharged? Hospital course, mention meds given and route, prescriptions, significant lab abnormalities, going to OR and other pertinent info. @69-year-old male presenting with central chest pain and pressure radiating to the shoulders. Patient is an extremis upon arrival, with significant chest pain. EKG shows significant depression and the precordial leads concerning for anterior ischemia or posterior MD. I do not see any ST segment elevation but given the presentation and ischemic EKG I did discuss case with Dr. Joe covering for cardiology and feel that the patient would be best served by urgent heart catheterization. Given aspirin, heparin, nitroglycerin and Lipitor in the emergency department and taken urgently to the [employer] [facility]. Undiagnosed new problem with uncertain prognosis? @ -No Drug Therapy requiring intensive monitoring for toxicity (Heparin, Nitro, Insulin, Cardizem)? @ -No Were any procedures done? @ -No Diagnosis/symptom? @ -Acute MD, Acute, or Chronic, or Acute on Chronic? @ -[Acute Uncomplicated (without systemic symptoms) or Complicated (systemic symptoms)? @ -Default Side effects of treatment? @ -No Exacerbation, Progression, or Severe Exacerbation? @ -No Poses a threat to life or bodily function? How? (Chest pain, USA, MD, pneumonia, PE, COPD, DKA, ARF, appy, cholecystitis, CVA, Diverticulitis, Homicidal, Suicidal, threat to staff... and all critical care pts) @ -yes, ACS - Lab Data Result diagrams: 09/11/24 01:07 09/11/24 01:07 Critical Care Time Critical Care Time: Yes Total Critical Care Time: 35 Disposition Clinical Impression: Acute MD Disposition: ADMITTED IP TO THIS [facility] Condition: Serious Is patient prescribed a controlled substance at d/c from ED?: No Time of Disposition: 01:09
[2024-09-11] MEDS ORDERED: NALOXONE 0.4 MG/ML 1 ML VIAL IV PRN (01:06)
[2024-09-11] MEDS: HEPARIN SODIUM 1,000 UN/ML (10ML VL) IV ONE ×3 (01:10→03:25)
[2024-09-11] MEDS: ATORVASTATIN 80 MG TAB PO STA (01:10)
[2024-09-11] MEDS: ASPIRIN 81 MG PO STA (01:10)
[2024-09-11] MEDS: MORPHINE SULFATE 2 MG/ML SYRINGE IVP STA (01:11)
[2024-09-11] MEDS: NITROGLYCERIN SL TABS 0.4 MG TAB SUBLINGUAL STA (01:14)
--- NOTE | 2024-09-11 01:17 | XR ---
EXAM: XR Chest, 1 View CLINICAL HISTORY: ITS.REASON XR Reason: chest pain TECHNIQUE: Frontal view of the chest. COMPARISON: 04/29/20 FINDINGS: Lungs: Small region of increased density near the right lung base could represent infiltrate or overlapping radiographic shadows. Lungs appear otherwise clear. Pleural space: No pleural effusion or pneumothorax. Heart: No cardiomegaly or pulmonary vascular congestion. Bones/joints: No acute fracture. No dislocation. IMPRESSION: Small region of increased density near the right lung base could represent infiltrate or overlapping radiographic shadows. Correlate clinically for pneumonia.
[2024-09-11 01:18] LABS: Basophils % (A) 0 %; Eosinophils # (A) 0.3 k/uL (0-0.7); Eosinophils % (A) 4 %; HCT 49.5 % (39.0-53.0); HGB 16.2 gm/dL (13.0-17.5); Lymphocytes # (A) 3.5 k/uL (1.0-4.8); Lymphocytes % (A) 39 %; MCHC 32.8 g/dL (31.0-37.0); MCV 94.6 fL (80.0-100.0); Mean Platelet Volume 8.5; Monocytes # (A) 0.5 k/uL (0-1.0); Monocytes % (A) 6 %; Neutrophils # (A) 4.3 k/uL (1.3-7.7); Neutrophils % (A) 48 %; Platelet Count 181 k/uL (150-450); RBC 5.23 m/uL (4.30-5.90); RDW 13.4 % (11.5-15.5); WBC 8.9 k/uL (3.8-10.6)
[2024-09-11 01:28] LABS: ALT 26 U/L (4-49); AST 41 U/L (17-59); African American GFR (CKD) >90 (>60 ml/min/1.73 sqM); Albumin 4.5 g/dL (3.5-5.0); Alkaline Phosphatase 94 U/L (38-126); Anion Gap 14 mmol/L; Blood Urea Nitrogen 23 mg/dL (9-20); Calcium 9.8 mg/dL (8.4-10.2); Carbon Dioxide 20 mmol/L (22-30); Chloride 104 mmol/L (98-107); Glucose 110 mg/dL (74-99); Magnesium 1.9 mg/dL (1.6-2.3); Non-African American GFR(CKD) 86 (>60 ml/min/1.73 sqM); Potassium 3.8 mmol/L (3.5-5.1); Sodium 138 mmol/L (137-145); Total Bilirubin 0.8 mg/dL (0.2-1.3); Total Protein 7.4 g/dL (6.3-8.2)
[2024-09-11 01:42] LABS: Partial Thromboplastin Time 23.2 sec (22.0-30.0); Prothrombin Time 11.1 sec (10.0-12.5)
--- NOTE | 2024-09-11 01:47 | P.CRDCN ---
History of Present Illness Consult date: 09/11/24 History of present illness: History of Present Illness: The patient is a 69-year-old male with no prior cardiac history who presented to the emergency room with severe substernal chest discomfort that woke him up from sleep. Yesterday he had some mild chest discomfort on and off that subsequently resolved but then was awoken with severe discomfort without any other associated symptoms. He came into the emergency room and his EKG showed significant ST segment depression in the anterior leads. At the time of my evaluation he is mildly better. He is active physically without associated chest discomfort, dizziness or palpitations. He denies any dyspnea on exertion. He denies any PND, orthopnea or syncope. He has no history of hypertension, hyperlipidemia, diabetes or smoking. Medications: Tadalafil Review of Systems: Respiratory: No history of asthma, bronchitis or recent cough. GI: No nausea or vomiting . No history of peptic ulcer disease. No recent GI bleed. : No hematuria or dysuria. Nervous System: No stroke or seizure. Physical Examination: 69-year-old male, alert oriented no apparent distress,Blood pressure 120/80, Heart rate 90 Head: Normocephalic. Eyes: Sclerae nonicteric. Neck: Good carotid upstroke, no bruit, no jugular venous distention. Lungs: Clear to auscultation. Heart: Regular rate and rhythm, S1-S2, no S3, no rub. No murmur. Abdomen: Soft nontender, positive bowel sounds no organomegaly. Extremities: No edema, intact distal pulses. Labs: Hemoglobin 16.2, potassium 3.8, BUN 23, creatinine 0.89 EKG: EKG sinus mechanism rate of 97 ST segment depression from V1-V5 consistent with anterior wall ischemia Impression: 1. Acute myocardial infarction with ST segment depression Plan: 1. Proceed with coronary angiography, the risks and the complications were discussed with the patient who is in full agreement and understanding 2. Echo cardiogram with Doppler 3. Depending on his progress further recommendations will be made 4. Thank you for this consult we will follow with you Past Medical History Past Medical History: Hearing Disorder / Deafness, Osteoarthritis (OA) History of Any Multi-Drug Resistant Organisms: None Reported Past Surgical History: Back Surgery, Hernia Repair, Tonsillectomy Additional Past Surgical History / Comment(s): LAMINECTOMY, BACK FUSION , HERNIA REPAIR X3 Past Anesthesia/Blood Transfusion Reactions: No Reported Reaction Past Psychological History: No Psychological Hx Reported Smoking Status: Never smoker Past Alcohol Use History: Rare Past Drug Use History: None Reported - Past Family History Mother Family Medical History: No Reported History Medications and Allergies Home Medications Medication Instructions Recorded Confirmed Type Cholecalciferol [Vitamin D3 (25 2,000 unit PO DAILY 04/29/20 04/29/20 History Mcg = 1000 Iu)] Magnesium Gluconate [Magonate] 500 mg PO DAILY 04/29/20 04/29/20 History Vit C/Ascorb Sod/Multivit-Min 500 mg PO DAILY 04/29/20 04/29/20 History [Emergen-C 500 mg Chewable Tab] Zinc 50 mg PO DAILY 04/29/20 04/29/20 History tadalafiL [Cialis] 10 mg PO DAILY 04/29/20 04/29/20 History Allergies Allergy/AdvReac Type Severity Reaction Status Date / Time No Known Allergies Allergy Verified 09/11/24 00:42 Physical Exam Vitals: Vital Signs Temp Pulse Resp BP Pulse Ox 09/11/24 01:20 98 16 120/81 100 09/11/24 01:00 98 F 95 21 146/91 99 09/11/24 00:40 97.4 F L 87 18 167/88 100 Intake and Output 09/10/24 09/10/24 09/11/24 14:59 22:59 06:59 Other: Weight 77.111 kg Results 09/11/24 01:07 09/11/24 01:07 Cardiac Enzymes 09/11/24 Range/Units 01:07 AST 41 (17-59) U/L Coagulation 09/11/24 Range/Units 01:07 PT 11.1 (10.0-12.5) sec APTT 23.2 (22.0-30.0) sec CBC 09/11/24 Range/Units 01:07 WBC 8.9 (3.8-10.6) k/uL RBC 5.23 (4.30-5.90) m/uL Hgb 16.2 (13.0-17.5) gm/dL Hct 49.5 (39.0-53.0) % Plt Count 181 (150-450) k/uL Comprehensive Metabolic Panel 09/11/24 Range/Units 01:07 Sodium 138 (137-145) mmol/L Potassium 3.8 (3.5-5.1) mmol/L Chloride 104 (98-107) mmol/L Carbon Dioxide 20 L (22-30) mmol/L BUN 23 H (9-20) mg/dL Creatinine 0.89 (0.66-1.25) mg/dL Glucose 110 H (74-99) mg/dL Calcium 9.8 (8.4-10.2) mg/dL AST 41 (17-59) U/L ALT 26 (4-49) U/L Alkaline Phosphatase 94 (38-126) U/L Total Protein 7.4 (6.3-8.2) g/dL Albumin 4.5 (3.5-5.0) g/dL Current Medications Generic Name Dose Route Start Last Admin Trade Name Freq PRN Reason Stop Dose Admin Naloxone HCl 0.2 mg 09/11/24 01:06 Naloxone 0.4 Mg/Ml 1 Ml Vial IV Q2M PRN Opioid Reversal Intake and Output 09/10/24 09/10/24 09/11/24 14:59 22:59 06:59 Other: Weight 77.111 kg Patient Weight 09/11/24 06:59 Weight 77.111 kg 09/11/24 01:07 09/11/24 01:07
[2024-09-11] MEDS: fentaNYL (PF) 50 MCG/1 ML VIAL IVP ONE (01:50)
[2024-09-11] MEDS: LIDOCAINE 1% INJ 10MG/ML (20 ML MDV) SQ ONE ×2 (01:51→03:13)
[2024-09-11] MEDS: SODIUM CHLORIDE 0.9% 1,000 ML IV ONE (01:53)
[2024-09-11] MEDS: VERAPAMIL SYRINGE (5 MG/10 ML) INTRAARTER ONE ×2 (01:56→03:14)
[2024-09-11] MEDS: PRASUGREL 10 MG TAB PO ONE (02:00)
[2024-09-11] MEDS: IOPAMIDOL-370 100ML BTL INJ ONE ×4 (02:05→04:27)
[2024-09-11] MEDS: MIDAZOLAM 2 MG/2 ML VIAL IVP ONE (02:11)
[2024-09-11 02:51] LABS: Glucose,Whole Blood 109 mg/dL (70-110)
[2024-09-11] MEDS: IV FLUID CONTINUATION 1,000 ML IV ONE (03:13)
[2024-09-11] MEDS ORDERED: RX INFO: IV CONTRAST WAS GIVEN 1 EACH MISC MISCELLANE PRN (04:12)
[2024-09-11] MEDS ORDERED: ZOLPIDEM 5 MG TAB PO PRN (04:12)
[2024-09-11] MEDS ORDERED: ATROPINE SULFATE 0.1 MG/ML 10ML SYRINGE IV PRN (04:12)
[2024-09-11] MEDS ORDERED: MAG HYDROX/AL HYDROX/SIMETH 30 ML CUP PO PRN (04:12)
[2024-09-11] MEDS ORDERED: NITROGLYCERIN SL TABS 0.4 MG TAB SUBLINGUAL PRN (04:12)
--- NOTE | 2024-09-11 04:24 | P.CARDCATH ---
Date of Procedure: 09/11/24 Description of Procedure: Cardiac Catheterization: The patient is a 69-year-old male with no prior cardiac history who presented with new onset chest discomfort with significant ST depression in the anterior leads with no ST segment elevation. Recommendations were made regarding cardiac catheterization, the risks and the complications were discussed with the patient who is in full understanding and agreement. Procedure Description: Patient was brought to laborer cheesemaking in fasting semi-sedated state after receiving Fentanyl and Benadryl achieiving moderate conscious sedated state. Using Xylocaine Anesthesia and modified Seldinger technique, a 6-Tongan sheath was introduced in the right radial artery . Subsequently, selective coronary angiography was performed using a 5-Tongan 3.5 bend Erik right and 6 Tongan CLS 3.5 guiding catheter. Multiple views of the coronary artery including hemiaxial views were obtained. The 5 Tongan pigtail catheter was used to cross the aortic valve and LVEDP was calculated. PCI: After obtaining images of the left system with a CLS 3.5 guiding catheter a 0.014 BMW J-wire was advanced and positioned in the distal ramus intermedius. Subsequently a 2.5 x 12 mm trek balloon was advanced and 2 inflations at 8 amirah were done. After removing the balloon a [place] eye IVUS catheter was introduced and imaging were obtained. It revealed a distal vessel measuring 3.0-3.25 in diameter and proximally 3.5-3.75 in diameter. After removing the catheter a 3.0 x 18 mm Xience Skypoint stent was deployed at 16 amirah. After removing the balloon repeat IVUS imaging was performed and revealed good apposition distally with mild on the deployment proximally. Subsequently a 3.5 x 12 mm NC trek balloon was advanced and 1 inflation in the proximal segment at 10 amirah was done. Subsequently the wire and the balloon was removed images were obtained and revealed stable successful stenting. Following that, catheter and sheath were removed. Hemostasis was obtained with deployment of vascular band . There was no immediate complication. Patient was returned to room in stable condition. Of note, the patient received a total of 4000 units of intravenous heparin as well as intra-arterial verapamil. He received an oral loading dose of prasugrel. He had significant improvement in the chest discomfort and EKG changes at the end of the procedure. After that the patient left the room and reviewing the images the lesion in the mid LAD was noted. The patient was brought to the Financial Aid Advisor, draped and prepped in the conventional fashion and using Xylocaine anesthesia and the Seldinger technique a 6 Tongan sheath was introduced in the left radial artery. Subsequently 6 Tongan CLS 3.5 guiding catheter was introduced and after cannulating the left main a 0.014 BMW J-wire with the help of a super cross microcatheter was able to cross the total occlusion and positioned distally, after removing the microcatheter a 2.25 x 12 mm trek balloon was advanced and multiple inflations were performed. Subsequently IVUS imaging was performed and revealed the distal lumen of 3 mm and proximally of 3.5 to 4 mm in diameter. There was diffuse disease proximal to the total occlusion, nonobstructive. At that point a 3.0 x 33 mm Xience thanh point stent was advanced and deployed at 16 amirah. Repeat IVUS imaging revealed good apposition distally but not in the mid and proximal segment. After removing the catheter a 3.5 x 15 mm NC trek balloon was advanced and inflation in the mid segment was done at 10 amirah and subsequently a 4.0 x 12 mm NC trek balloon was advanced and 1 inflation in the proximal segment was done at 10 amirah. After the last inflation the wire was removed images were obtained and revealed stable successful stenting. The patient was given in addition of 6000 units of intravenous heparin and his ACT was followed. He was pain-free and he had no significant EKG changes with the inflations. Findings: Left main: This is a large sized vessel, trifurcating into LAD, left circumflex and ramus intermedius, left main has no obstructive disease. LAD: This is a large size vessel has intimal disease in the proximal and mid segment of 10 to 20%. After the takeoff of the mid diagonal branch 100% occlusion with minimal antegrade flow. Left circumflex: This is a large dominant vessel, bifurcating distally to PDA and PLB, giving rise to 2 obtuse marginal branch. The PLV has a 70 to 80% stenosis at the distal segment, the rest of the vessel has no high-grade stenosis RCA: This is a small nondominant vessel that has no evidence of high-grade stenosis Ramus intermedius: This is a large size vessel that has a 99% stenosis proximal with very slow flow. Left Ventriculogram: Not performed Hemodynamics: There was no gradient across the aortic valve, LVEDP was 8-10 mmHg Conclusion: 1. Subtotally occluded ramus intermedius 2. Totally occluded mid to distal LAD 3. Moderate to significant disease in the left PLV 4. Left dominance 5. Successful stenting of the ramus intermedius with reduction stenosis from 99% to 0% with ISI-3 flow and IVUS imaging 6. Successful stenting of the right appears to be more chronic occlusion of the mid LAD with reduction of stenosis from 100% to 0% with ISI-3 flow and IVUS imaging. There was diffuse disease in the proximal and mid segment of the LAD, nonobstructive. Recommendations: The patient will continue on aspirin and prasugrel without any interruption for 1 year in addition to aggressive coronary risk modification, maintaining LDL at less than 70 mg/dL. The patient will be evaluated at a later time for the need to undergo PCI of his left PLV. The findings and the recommendations were discussed with the patient and the family and they were in full understanding and agreement. Duration of sedation is 92 minutes.
[2024-09-11 04:25] LABS: Glucose,Whole Blood 103 mg/dL (70-110)
[2024-09-11] MEDS: SODIUM CHLORIDE 0.9% 1,000 ML in EMPTY BAG 1 BAG IV SCH (04:55)
[2024-09-11 09:57] LABS: Chol/HDL Ratio 3.97 Ratio
[2024-09-11 09:58] LABS: LDL Cholesterol,Calculated 129.1 mg/dL (0.0-131.0)
[2024-09-11] MEDS: ASPIRIN 81 MG PO SCH (10:31)
[2024-09-11] MEDS: METOPROLOL TARTRATE 25 MG TAB PO SCH (10:31)
[2024-09-11 12:06] VITALS: BMI 24.3
--- NOTE | 2024-09-11 13:41 | CA ---
Transthoracic Echo Report Name: Shiva Conklin Age: 69 Gender: M : 1955 Exam Date: 09/11/2024 07:54 Exam Location: [facility] Ht (in): 70 Wt (lb): 170 Ordering Physician: Yana Joe MD ([id number]) Attending/Referring Phys: Postal Mail Carrier Daisy Michael RDCS Procedure CPT: Indications: MA Cardiac Hx: Cath Technical Quality: Good Contrast 1: Total Dose (mL): Contrast 2: Total Dose (mL): MEASUREMENTS (Male / Female) Normal Values 2D ECHO LV Diastolic Diameter PLAX 4.9 cm 4.2 - 5.9 / 3.9 - 5.3 cm LV Systolic Diameter PLAX 3.2 cm IVS Diastolic Thickness 1.0 cm 0.6 - 1.0 / 0.6 - 0.9 cm LVPW Diastolic Thickness 1.4 cm 0.6 - 1.0 / 0.6 - 0.9 cm LV Relative Wall Thickness 0.5 RV Internal Dim ED PLAX 1.7 cm LVOT Diameter 2.1 cm LA Systolic Diameter LX 3.5 cm 3.0 - 4.0 / 2.7 - 3.8 cm LV Diastolic Volume MOD BP 72.4 cm??? 67 - 155 / 56 - 104 cm??? LV Systolic Volume MOD BP 25.9 cm??? 22 - 58 / 19 - 49 cm??? LV Ejection Fraction MOD BP 64.3 % >= 55 % LV Cardiac Index MOD BP 1473.8 cm???/min???m??? LV Diastolic Volume MOD 4C 76.5 cm??? LV Systolic Volume MOD 4C 27.2 cm??? LV Ejection Fraction MOD 4C 64.4 % LV Cardiac Index MOD 4C 1560.1 cm???/min???m??? LV Diastolic Length 4C 8.0 cm LV Systolic Length 4C 6.6 cm LV Diastolic Volume MOD 2C 68.7 cm??? LV Systolic Volume MOD 2C 24.2 cm??? LV Ejection Fraction MOD 2C 64.8 % LV Cardiac Index MOD 2C 1408.7 cm???/min???m??? LV Diastolic Length 2C 8.0 cm LV Systolic Length 2C 6.9 cm LA Volume 67.4 cm??? 18 - 58 / 22 - 52 cm??? LA Volume Index 34.4 cm???/m??? 16 - 28 cm???/m??? M-MODE Aortic Root Diameter MM 3.8 cm LA Systolic Diameter MM 3.8 cm LA Ao Ratio MM 1.0 AV Cusp Separation MM 1.1 cm DOPPLER AV Peak Velocity 253.2 cm/s AV Peak Gradient 26.0 mmHg AV Mean Velocity 150.8 cm/s AV Mean Gradient 16.6 mmHg AV Velocity Time Integral 49.5 cm LVOT Peak Velocity 113.4 cm/s LVOT Peak Gradient 5.1 mmHg LVOT Velocity Time Integral 27.6 cm LVOT Stroke Volume 95.8 cm??? LVOT Stroke Volume Index 49.2 ml/m??? LVOT Cardiac Index 3034.3 cm???/min???m??? AV Area Cont Eq vti 1.9 cm??? AV Area Cont Eq pk 1.6 cm??? MV Area PHT 3.7 cm??? Mitral E Point Velocity 105.1 cm/s Mitral A Point Velocity 70.8 cm/s Mitral E to A Ratio 1.5 MV Deceleration Time 207.4 ms TR Peak Velocity 165.6 cm/s TR Peak Gradient 11.0 mmHg FINDINGS Left Ventricle Left ventricular ejection fraction is estimated at 55-60 %. Normal left ventricular systolic function with no obvious regional wall motion abnormalities. Left ventricle not well visualized. Left ventricular wall thickness normal. Right Ventricle Normal right ventricular size and function. Right ventricular systolic pressure within normal limits. Right Atrium Mild right atrial dilatation. Left Atrium Mildly increased left atrial volume. Mildly increased left atrial area. Mitral Valve Structurally normal mitral valve. No mitral stenosis. Trace to mild mitral regurgitation. Aortic Valve Poorly visualized, calcified and Diffuse thickening of the aortic valve cusps with reduced excursion. Fixed NCC. [id number]-[id number] aortic stenosis with a peak gradient of 26 mmHg and a mean gradient of 16 mmHg. No aortic regurgitation. Tricuspid Valve Structurally normal tricuspid valve. Trace to mild tricuspid regurgitation. No tricuspid stenosis. Pulmonic Valve Structurally normal pulmonic valve. Trace pulmonic regurgitation. No pulmonic stenosis. Pericardium No pericardial or pleural effusion. Aorta Mild aortic dilatation at the level of the sinuses of valsalva (root). CONCLUSIONS LVEF 55% No obvious regional wall motion abnormality Normal RV size and systolic function Mild biatrial dilatation Mild aortic stenosis with mean gradient of 16 mmHg, calcified and thickened aortic valve, Previewed by: Dr Delmer Bird (Electronically Signed) Final Date: 11 September 2024 13:40
--- NOTE | 2024-09-11 14:28 | P.HPIM ---
History of Present Illness H&P Date: 09/11/24 History of present illness; patient is 69-year-old gentleman with past medical history significant for osteoarthritis brought the ER because of chest pain. Patient stated for the last couple of days he has been having chest pressure that was central in location, intermittent, nonradiating, patient did not pay much attention to it. Last night patient started having severe chest pain that was excruciating, radiating to both arms, there was no aggravating or relieving factor associated with this chest pain. There was no complaint of orthopnea or PND. There was no complaint of shortness of breath at that time. There was no episode of diaphoresis during this episode of chest pain. Because of the chest pain, patient came to the ER Initial lab work done in the ER showed WBC 8.9, hemoglobin 16.2, platelet count 191, sodium 138, potassium 3.8, BUN 23, creatinine 0.89, glucose 110, calcium 9 .8, magnesium 1.9, AST 41, ALT 23, troponin 0.083 EKG done in the ER showed heart rate of 97 , ST segment depression in V1-V6, no T wave inversions Chest x-ray done in the ER showed small region of increased density near the right lung base could represent infiltrate or overlapping radiographic shadows Business Support Assistant was activated, coronary angiography it showed Subtotally occluded ramus intermedius, Totally occluded mid to distal LAD, Moderate to significant disease in the left PLV, Successful stenting of the ramus intermedius with reduction stenosis from 99% to 0% with ISI-3 flow and IVUS imaging, Successful stenting of the right appears to be more chronic occlusion of the mid LAD with reduction of stenosis from 100% to 0% with ISI-3 flow and IVUS imaging. Patient admitted to internal medicine service to ICU REVIEW OF SYSTEMS: CONSTITUTIONAL: No fever, no malaise, no fatigue. HEENT: No recent visual problems or hearing problems. Denied any sore throat. CARDIOVASCULAR: As mentioned above PULMONARY: No shortness of breath, no cough, no hemoptysis. GASTROINTESTINAL: No diarrhea, no nausea, no vomiting, no abdominal pain. NEUROLOGICAL: No headaches, no weakness, no numbness. HEMATOLOGICAL: Denies any bleeding or petechiae. GENITOURINARY: Denies any burning micturition, frequency, or urgency. MUSCULOSKELETAL/RHEUMATOLOGICAL: Denies any joint pain, swelling, or any muscle pain. ENDOCRINE: Denies any polyuria or polydipsia. The rest of the 14-point review of systems is negative. PHYSICAL EXAMINATION: GENERAL: The patient is alert and oriented x3, not in any acute distress. Well developed, well nourished. HEENT: Pupils are round and equally reacting to light. EOMI. No scleral icterus. No conjunctival pallor. Normocephalic, atraumatic. No pharyngeal erythema. No thyromegaly. CARDIOVASCULAR: S1 and S2 present. No murmurs, rubs, or gallops. PULMONARY: Chest is clear to auscultation, no wheezing or crackles. ABDOMEN: Soft, nontender, nondistended, normoactive bowel sounds. No palpable organomegaly. MUSCULOSKELETAL: No joint swelling or deformity. EXTREMITIES: No cyanosis, clubbing, or pedal edema. NEUROLOGICAL: Gross neurological examination did not reveal any focal deficits. SKIN: No rashes. Assessment and plan NSTEMI Monitor vital signs Monitor CBC Monitor CMP Continue telemetry monitoring S/p cardiac cath Subtotally occluded ramus intermedius, Totally occluded mid to distal LAD, Moderate to significant disease in the left PLV, Successful stenting of the ramus intermedius with reduction stenosis from 99% to 0% with ISI-3 flow and IVUS imaging, Successful stenting of the right appears to be more chronic occlusion of the mid LAD with reduction of stenosis from 100% to 0% with ISI-3 flow and IVUS imaging. Start aspirin and Effient Start Lipitor Start Lopressor Ordered 2D echo Ordered lipid panel Order HbA1c level Resume home meds Cardiology on board Labs and medication were reviewed.. Continue same treatment. Continue with symptomatic treatment. Resume home medication. Monitor labs and vitals. DVT and GI prophylaxis. Further recommendations as per clinical course of the patient Dictation was produced using Kobo[employer] dictation software. please excuse any grammatical, word or spelling errors. Past Medical History Past Medical History: Hearing Disorder / Deafness, Osteoarthritis (OA) History of Any Multi-Drug Resistant Organisms: None Reported Past Surgical History: Back Surgery, Hernia Repair, Tonsillectomy Additional Past Surgical History / Comment(s): LAMINECTOMY, BACK FUSION , HERNIA REPAIR X3 Past Anesthesia/Blood Transfusion Reactions: No Reported Reaction Past Psychological History: No Psychological Hx Reported Smoking Status: Never smoker Past Alcohol Use History: Rare Past Drug Use History: None Reported - Past Family History Mother Family Medical History: No Reported History Additional Family Medical History / Comment(s): Father with CABG Medications and Allergies Home Medications Medication Instructions Recorded Confirmed Type Cholecalciferol [Vitamin D3 (25 2,000 unit PO DAILY 04/29/20 09/11/24 History Mcg = 1000 Iu)] Magnesium Gluconate [Magonate] 500 mg PO DAILY 04/29/20 09/11/24 History Vit C/Ascorb Sod/Multivit-Min 500 mg PO DAILY 04/29/20 09/11/24 History [Emergen-C 500 mg Chewable Tab] Zinc 50 mg PO DAILY 04/29/20 09/11/24 History tadalafiL [Cialis] 10 mg PO DAILY 04/29/20 09/11/24 History Multivitamin [Multivitamins Adult 1 each PO DAILY 09/11/24 09/11/24 History Gummies] Saw [place] 500 mg PO DAILY 09/11/24 09/11/24 History Allergies Allergy/AdvReac Type Severity Reaction Status Date / Time No Known Allergies Allergy Verified 09/11/24 00:42 Physical Exam Vitals: Vital Signs Temp Pulse Pulse Resp BP BP Pulse Ox 09/11/24 07:00 64 12 115/65 98 09/11/24 06:30 59 L 0 L 115/65 97 09/11/24 06:20 66 7 L 115/65 97 09/11/24 06:10 64 11 L 115/65 99 09/11/24 06:00 60 13 115/65 98 09/11/24 05:50 61 20 115/65 98 09/11/24 05:40 60 28 H 115/65 98 09/11/24 05:30 63 26 H 115/65 99 09/11/24 05:20 69 9 L 115/65 98 09/11/24 05:10 63 21 115/65 97 09/11/24 05:00 63 23 115/65 98 09/11/24 04:50 85 26 H 115/65 99 09/11/24 04:40 68 18 115/65 98 09/11/24 04:30 98.0 F 66 9 L 115/65 98 09/11/24 01:40 92 186 H 90/78 95 09/11/24 01:35 80 16 110/74 97 09/11/24 01:30 66 16 98/84 97 09/11/24 01:25 98 16 110/66 95 09/11/24 01:20 98 16 120/81 100 09/11/24 01:00 98 F 95 21 146/91 99 09/11/24 00:40 97.4 F L 87 18 167/88 100 Intake and Output 09/10/24 09/11/24 09/11/24 22:59 06:59 14:59 Intake Total 731 77 Output Total 300 Balance 431 77 Intake: IV 731 77 Sodium Chloride 0.9% 1, 231 77 000 ml In Empty Bag 1 bag @ 1 ML/KG/HR 77.111 mls/ hr IV [id number] [facility] Rx#: [id number] Output: Urine 300 Other: Voiding Method Urinal Weight 77.111 kg Results CBC & Chem 7: 09/11/24 01:07 09/11/24 01:07 Labs: Abnormal Lab Results - Last 24 Hours (Table) 09/11/24 09/11/24 Range/Units 01:07 01:07 Carbon Dioxide 20 L (22-30) mmol/L BUN 23 H (9-20) mg/dL Glucose 110 H (74-99) mg/dL Troponin I 0.083 H* (0.000-0.034) ng/mL Thrombosis Risk Factor Assmnt - Choose All That Apply Any of the Below Risk Factors Present?: Yes Each Factor Represents 1 point: Acute ND Other Risk Factors: Yes Each Risk Factor Represents 2 Points: Age 61-74 years Other congenital or acquired thrombophilia - If yes, enter type in comment: No Thrombosis Risk Factor Assessment Total Risk Factor Score: 3 Thrombosis Risk Factor Assessment Level: Moderate Risk
[2024-09-11] MEDS: ATORVASTATIN 80 MG TAB PO SCH (21:16)
[2024-09-12 06:17] LABS: African American GFR (CKD) >90 (>60 ml/min/1.73 sqM); Anion Gap 7 mmol/L; Blood Urea Nitrogen 15 mg/dL (9-20); Calcium 8.6 mg/dL (8.4-10.2); Carbon Dioxide 22 mmol/L (22-30); Chloride 108 mmol/L (98-107); Glucose 107 mg/dL (74-99); Non-African American GFR(CKD) >90 (>60 ml/min/1.73 sqM); Potassium 4.1 mmol/L (3.5-5.1); Sodium 137 mmol/L (137-145)
[2024-09-12] MEDS: PRASUGREL 10 MG TAB PO SCH (08:07)
[2024-09-12 08:10] VITALS: TEMP 97.5
--- NOTE | 2024-09-12 11:24 | P.PN ---
Subjective Progress Note Date: 09/12/24 History of Present Illness: The patient is a 69-year-old male with no prior cardiac history who presented to the emergency room with severe substernal chest discomfort that woke him up from sleep. Yesterday he had some mild chest discomfort on and off that subsequently resolved but then was awoken with severe discomfort without any other associated symptoms. He came into the emergency room and his EKG showed significant ST segment depression in the anterior leads. At the time of my evaluation he is mildly better. He is active physically without associated chest discomfort, dizziness or palpitations. He denies any dyspnea on exertion. He denies any PND, orthopnea or syncope. He has no history of hypertension, hyperlipidemia, diabetes or smoking. Medications: Tadalafil Review of Systems: Respiratory: No history of asthma, bronchitis or recent cough. GI: No nausea or vomiting . No history of peptic ulcer disease. No recent GI bleed. : No hematuria or dysuria. Nervous System: No stroke or seizure. Physical Examination: 69-year-old male, alert oriented no apparent distress,Blood pressure 120/80, Heart rate 90 Head: Normocephalic. Eyes: Sclerae nonicteric. Neck: Good carotid upstroke, no bruit, no jugular venous distention. Lungs: Clear to auscultation. Heart: Regular rate and rhythm, S1-S2, no S3, no rub. No murmur. Abdomen: Soft nontender, positive bowel sounds no organomegaly. Extremities: No edema, intact distal pulses. Labs: Hemoglobin 16.2, potassium 3.8, BUN 23, creatinine 0.89 EKG: EKG sinus mechanism rate of 97 ST segment depression from V1-V5 consistent with anterior wall ischemia Echo shows EF 55%, No obvious regional wall motion abnormality, mild aortic s tenosis millimeters of 60 neurology Impression: 1. Acute myocardial infarction with ST segment depression status post PCI to ramus which is the culprit and mid LAD 2. Mild aortic stenosis 3. 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 Joe within next 1 weeks. Outpatient cardiac rehab He does have residual disease in left PL branch which needs staged PCI Objective - Vital Signs Vital signs: Vital Signs Temp 97.5 F L 09/12/24 08:00 Pulse 84 09/12/24 08:00 Resp 20 09/12/24 08:00 BP 100/60 09/12/24 08:00 Pulse Ox 99 09/12/24 08:00 FiO2 Intake & Output 09/11/24 09/12/24 09/12/24 18:59 06:59 18:59 Intake Total 77 Output Total 0 Balance 77 Weight 77.111 kg 78.3 kg Intake: IV 77 Sodium Chloride 0.9% 1, 77 000 ml In Empty Bag 1 bag @ 1 ML/KG/HR 77.111 mls/ hr IV .[id number] [facility] Rx#: [id number] Output: Urine 0 Other: # Voids 1 1 # Bowel Movements 1 - Labs CBC & Chem 7: 09/11/24 01:07 09/12/24 05:37 Labs: Abnormal Lab Results - Last 24 Hours (Table) 09/12/24 Range/Units 05:37 Chloride 108 H (98-107) mmol/L Glucose 107 H (74-99) mg/dL
[2024-09-12 11:27] VITALS: BP 121/76; PULSE 63; RESP 21
--- NOTE | 2024-09-12 12:55 | P.DS ---
Providers Date of admission: 09/11/24 01:07 Expected date of discharge: 09/12/24 Attending physician: Jason Castellano Consults: 09/11/24 01:06 Consult Physician Routine Consulting Provider: Yana Joe Consult Reason/Comments: Acute [place] Do you want consulting provider notified?: Yes 09/11/24 04:12 Consult Physician Routine Consulting Provider: [facility] Consult Reason/Comments: Post Interventional Patient Do you want consulting provider notified?: Already Contacted Primary care physician: Jose Salcedo MD Hospital Course: Discharge diagnoses; Acute myocardial infarction with ST segment depression status post PCI Mild aortic stenosis Residual CAD in an left PL branch which needs staged PCI Hospital course; patient is 69-year-old gentleman with past medical history significant for osteoarthritis brought the ER because of chest pain. Patient stated for the last couple of days he has been having chest pressure that was central in location, intermittent, nonradiating, patient did not pay much attention to it. Last night patient started having severe chest pain that was excruciating, radiating to both arms, there was no aggravating or relieving factor associated with this chest pain. There was no complaint of orthopnea or PND. There was no complaint of shortness of breath at that time. There was no episode of diaphoresis during this episode of chest pain. Because of the chest pain, patient came to the ER Initial lab work done in the ER showed WBC 8.9, hemoglobin 16.2, platelet count 191, sodium 138, potassium 3.8, BUN 23, creatinine 0.89, glucose 110, calcium 9.8, magnesium 1.9, AST 41, ALT 23, troponin 0.083 EKG done in the ER showed heart rate of 97 , ST segment depression in V1-V6, no T wave inversions Chest x-ray done in the ER showed small region of increased density near the right lung base could represent infiltrate or overlapping radiographic shadows Timekeeping Supervisor was activated, coronary angiography it showed Subtotally occluded ramus intermedius, Totally occluded mid to distal LAD, Moderate to significant disease in the left PLV, Successful stenting of the ramus intermedius with reduction stenosis from 99% to 0% with ISI-3 flow and IVUS imaging, Successful stenting of the right appears to be more chronic occlusion of the mid LAD with reduction of stenosis from 100% to 0% with ISI-3 flow and IVUS imaging. Patient admitted to internal medicine service to ICU Echo shows EF 55%, No obvious regional wall motion abnormality, mild aortic stenosis millimeters Cardiology evaluated, recommending discharging patient on aspirin, Effient, Toprol, Lipitor. Outpatient follow-up with cardiology PHYSICAL EXAMINATION: GENERAL: The patient is alert and oriented x3, not in any acute distress. Well developed, well nourished. HEENT: Pupils are round and equally reacting to light. EOMI. No scleral icterus. No conjunctival pallor. Normocephalic, atraumatic. No pharyngeal erythema. No thyromegaly. CARDIOVASCULAR: S1 and S2 present. No murmurs, rubs, or gallops. PULMONARY: Chest is clear to auscultation, no wheezing or crackles. ABDOMEN: Soft, nontender, nondistended, normoactive bowel sounds. No palpable organomegaly. MUSCULOSKELETAL: No joint swelling or deformity. EXTREMITIES: No cyanosis, clubbing, or pedal edema. NEUROLOGICAL: Gross neurological examination did not reveal any focal deficits. SKIN: No rashes. Dictation was produced using [employer] dictation software. please excuse any grammatical, word or spelling errors. Patient Condition at Discharge: Good Plan - Discharge Summary Discharge Rx Participant: Yes New Discharge Prescriptions: New Nitroglycerin Sl Tabs [Nitrostat] 0.4 mg SUBLINGUAL Q5M PRN #30 tab PRN Reason: Chest Pain Aspirin 81 mg PO DAILY 30 Days #30 tab Prasugrel [Effient] 10 mg PO DAILY 30 Days #30 tab Atorvastatin [Lipitor] 80 mg PO HS 30 Days #30 tab Metoprolol Succinate (ER) [Toprol XL] 25 mg PO DAILY #30 tab Continue Zinc 50 mg PO DAILY Vit C/Ascorb Sod/Multivit-Min [Emergen-C 500 mg Chewable Tab] 500 mg PO DAILY Magnesium Gluconate [Magonate] 500 mg PO DAILY tadalafiL [Cialis] 10 mg PO DAILY Saw [place] 500 mg PO DAILY Multivitamin [Multivitamins Adult Gummies] 1 tab PO DAILY Cholecalciferol (Vitamin D3) [Vitamin D3 (50 Mcg = 2000 Iu)] 50 mcg PO DAILY Discharge Medication List Magnesium Gluconate [Magonate] 500 mg PO DAILY 04/29/20 [History] Vit C/Ascorb Sod/Multivit-Min [Emergen-C 500 mg Chewable Tab] 500 mg PO DAILY 04/29/20 [History] Zinc 50 mg PO DAILY 04/29/20 [History] tadalafiL [Cialis] 10 mg PO DAILY 04/29/20 [History] Cholecalciferol (Vitamin D3) [Vitamin D3 (50 Mcg = 2000 Iu)] 50 mcg PO DAILY 09/11/24 [History] Multivitamin [Multivitamins Adult Gummies] 1 tab PO DAILY 09/11/24 [History] Saw [place] 500 mg PO DAILY 09/11/24 [History] Aspirin 81 mg PO DAILY 30 Days #30 tab 09/12/24 [Rx] Atorvastatin [Lipitor] 80 mg PO HS 30 Days #30 tab 09/12/24 [Rx] Metoprolol Succinate (ER) [Toprol XL] 25 mg PO DAILY #30 tab 09/12/24 [Rx] Nitroglycerin Sl Tabs [Nitrostat] 0.4 mg SUBLINGUAL Q5M PRN #30 tab 09/12/24 [Rx] Prasugrel [Effient] 10 mg PO DAILY 30 Days #30 tab 09/12/24 [Rx] Follow up Appointment(s)/Referral(s): Yana Joe MD [STAFF PHYSICIAN] - 1 Week (Office hours are currently closed. Patient education to make own appointment next scheduled business day.) Jose Salcedo MD [Primary Care Provider] - 1-2 days (Office hours are currently closed. Patient education to make own appointment next scheduled business day.) Patient Instructions/Handouts: *Surgery [facility] - After Heart Catheterization - [place] Hand Instructions, Heart Attack (DC) Discharge Disposition: HOME SELF-CARE
[2024-09-13] MEDS ORDERED: METOPROLOL SUCCINATE (ER) 25 MG TAB.ER.24H PO SCH (09:00)
== END 2024-09-12 14:10 | disposition home or self-care (01) | DRG 322 ==
LOC: EC 00:39 → 2SICU 01:07
PROVIDERS: ADMIT Internal Medicine; ATTEND Internal Medicine
PROC: 027135Z Dilation of Coronary Artery, Two Arteries with Two Drug-eluting Intraluminal Devices, Percutaneous Approach (ICD-10-PCS; principal; 2024-09-11 01:36)
PROC: 4A023N7 Measurement of Cardiac Sampling and Pressure, Left Heart, Percutaneous Approach (ICD-10-PCS; 2024-09-11 01:36)
PROC: B2111ZZ Fluoroscopy of Multiple Coronary Arteries using Low Osmolar Contrast (ICD-10-PCS; 2024-09-11 01:36)
DX: I21.09 ST elevation (STEMI) myocardial infarction involving other coronary artery of anterior wall (principal); I25.10 Atherosclerotic heart disease of native coronary artery without angina pectoris; I35.0 Nonrheumatic aortic (valve) stenosis; Z79.899 Other long term (current) drug therapy; Z98.1 Arthrodesis status
CPT/HCPCS: 36415; 71045; 80048; 80053; 80061; 83036; 83735; 84484; 85025; 85610; 85730; 92978; 93005; 93306; 93458; 96374; 96375; 99291

== ENCOUNTER 2024-10-08 04:55 | Inpatient (IN) | payer MEDICARE ==
--- NOTE | 2024-10-08 05:42 | XR ---
EXAMINATION TYPE: XR chest 1V portable DATE OF EXAM: 10/08/2024 COMPARISON: Chest x-ray September 11, 2024 CLINICAL INDICATION: Male, 69 years old with history of syncope; TECHNIQUE: Single frontal view of the chest is obtained. FINDINGS: There is some chronic parenchymal change bilaterally redemonstrated without suspicious new focal air space opacity, pleural effusion, or pneumothorax seen. Persistent cardiomegaly. The osse ous structures are intact. IMPRESSION: Cardiomegaly without acute pulmonary process. [facility], Workstation: [facility], 10/08/2024 5:40 AM
[2024-10-08 05:43] LABS: Basophils # (A) 0.03 10*3/uL (0.00-0.10); Basophils % (A) 0.4 %; Eosinophils # (A) 0.25 10*3/uL (0.04-0.35); Eosinophils % (A) 3.7 %; HCT 47.2 % (39.6-50.0); HGB 16.3 g/dL (13.0-17.0); Lymphocytes # (A) 1.72 10*3/uL (0.90-5.00); Lymphocytes % (A) 25.5 %; MCH 31.7 pg (27.0-32.0); MCHC 34.5 g/dL (32.0-37.0); MCV 91.8 fL (80.0-97.0); Mean Platelet Volume 11.5 fL (9.5-12.2); Monocytes # (A) 0.74 10*3/uL (0.20-1.00); Neutrophils # (A) 3.99 10*3/uL (1.80-7.70); Neutrophils % (A) 59.3 %; Platelet Count 162 10*3/uL (140-440); RBC 5.14 10*6/uL (4.40-5.60); RDW 13.2 % (11.5-14.5); WBC 6.74 10*3/uL (4.50-10.00)
[2024-10-08 06:48] LABS: ALT 22 U/L (4-49); AST 30 U/L (17-59); African American GFR (CKD) >90 (>60 ml/min/1.73 sqM); Albumin 3.6 g/dL (3.5-5.0); Alkaline Phosphatase 67 U/L (38-126); Anion Gap 9 mmol/L; Blood Urea Nitrogen 20 mg/dL (9-20); Calcium 8.9 mg/dL (8.4-10.2); Carbon Dioxide 21 mmol/L (22-30); Chloride 105 mmol/L (98-107); Glucose 104 mg/dL (74-99); Non-African American GFR(CKD) >90 (>60 ml/min/1.73 sqM); Sodium 135 mmol/L (137-145); Total Bilirubin 0.8 mg/dL (0.2-1.3); Total Protein 6.3 g/dL (6.3-8.2)
--- NOTE | 2024-10-08 07:33 | ED ---
Fall HPI - General Chief Complaint: Fall Stated Complaint: Head Injury, Syncope and Collapse Time Seen by Provider: 10/08/24 05:08 Source: patient, family Mode of arrival: wheelchair - History of Present Illness Initial Comments: This patient is a 69-year-old man who presents to evaluation after what sounds like syncopal episode at home. The patient states that he had gotten up to urinate. While he was standing in the bathroom he felt himself becoming lightheaded. He states that he was going to sit down but must have passed out. He woke up in the bathroom with laceration to the forehead and to the scalp. The patient's heard him fall and went to check him and states that he was unconscious in the bathtub. He was unconscious for perhaps up to a minute. She called EMS and the patient was alert and at baseline by their arrival. There was no loss of continence. There was no shaking movement noted. The patient had been admitted here approximately a month ago with FL and stent placement. Patient denied chest pain, dyspnea, diaphoresis, nausea or vomiting. MD Complaint: fall -: minutes(s) Fall From: standing When Fall Occurred: just prior to arrival Fall Witnessed: no Place Fall Occurred: home Loss of Consciousness: yes Prolonged Down Time?: no Symptoms Prior to Fall: lightheadedness Location: head Severity: mild Severity scale (1-10): 1 Quality: dull Associated Symptoms: denies - Related Data Home Medications Medication Instructions Recorded Confirmed Magnesium Gluconate [Magonate] 500 mg PO DAILY 04/29/20 10/08/24 Zinc 50 mg PO DAILY 04/29/20 10/08/24 Cholecalciferol (Vitamin D3) 50 mcg PO DIRECTED 09/11/24 10/08/24 [Vitamin D3 (50 Mcg = 2000 Iu)] Saw [place] 500 mg PO TID 09/11/24 10/08/24 Cardio Miracle Powder 1 dose PO BID 10/08/24 10/08/24 Nitroglycerin Sl Tabs [Nitrostat] 0.4 mg SL Q5M PRN 10/08/24 10/08/24 Previous Rx's Medication Instructions Recorded Apixaban [Eliquis] 5 mg PO BID #60 tab 10/10/24 Atorvastatin [Lipitor] 80 mg PO HS #0 05/04/25 Metoprolol Succinate (ER) [Toprol 25 mg PO DAILY #0 10/10/24 XL] Prasugrel [Effient] 10 mg PO DAILY #0 10/10/24 Allergies Allergy/AdvReac Type Severity Reaction Status Date / Time No Known Allergies Allergy Verified 10/08/24 09:47 Review of Systems ROS Statement: Those systems with pertinent positive or pertinent negative responses have been documented in the HPI. ROS Other: All systems not noted in ROS Statement are negative. Constitutional: Denies: fever, chills, weakness Eyes: Denies: vision change ENT: Denies: epistaxis Respiratory: Denies: cough, dyspnea Cardiovascular: Denies: chest pain, palpitations, edema, syncope Gastrointestinal: Denies: abdominal pain, nausea, vomiting Genitourinary: Denies: dysuria, hematuria Musculoskeletal: Denies: back pain Skin: Denies: rash Neurological: Reports: headache Past Medical History Past Medical History: Hearing Disorder / Deafness, Myocardial Infarction (FL), Osteoarthritis (OA) History of Any Multi-Drug Resistant Organisms: None Reported Past Surgical History: Back Surgery, Heart Catheterization With Stent, Hernia Repair, Orthopedic Surgery, Tonsillectomy Additional Past Surgical History / Comment(s): LAMINECTOMY, BACK FUSION , HERNIA REPAIR X3, 2 hearts stents Past Anesthesia/Blood Transfusion Reactions: No Reported Reaction Past Psychological History: No Psychological Hx Reported Smoking Status: Never smoker Past Alcohol Use History: Rare Past Drug Use History: None Reported - Past Family History Mother Family Medical History: No Reported History Additional Family Medical History / Comment(s): Father with CABG General Exam Limitations: no limitations General appearance: alert, in no apparent distress Head exam: Present: atraumatic, normocephalic Eye exam: Present: normal appearance. Absent: scleral icterus, conjunctival injection ENT exam: Present: normal oropharynx Neck exam: Present: normal inspection, full ROM Respiratory exam: Present: normal lung sounds bilaterally. Absent: respiratory distress, wheezes, rales, rhonchi, stridor, accessory muscle use Cardiovascular Exam: Present: tachycardia, irregular rhythm, normal heart sounds. Absent: systolic murmur, diastolic murmur, rubs, gallop GI/Abdominal exam: Present: soft. Absent: distended, tenderness, guarding, rebound, rigid, mass Extremities exam: Present: normal inspection, normal capillary refill. Absent: pedal edema, calf tenderness Back exam: Present: normal inspection. Absent: CVA tenderness (R), CVA tenderness (L), vertebral tenderness Neurological exam: Present: alert, oriented X3, CN II-XII intact. Absent: motor sensory deficit Skin exam: Present: warm, dry, normal color, other (Patient has approximately 3 cm curvilinear superficial abrasion to the forehead. There is approximately 2 cm laceration at the top of the scalp.). Absent: rash Course Vital Signs 10/08/24 10/08/24 10/08/24 04:57 07:53 09:13 Temperature 97.4 F L Pulse Rate 97 117 H 128 H Respiratory 16 17 19 Rate Blood Pressure 131/81 107/89 O2 Sat by Pulse 100 99 99 Oximetry 10/08/24 10/08/24 10:50 14:06 Temperature Pulse Rate 117 H 92 Respiratory 12 17 Rate Blood Pressure 99/68 O2 Sat by Pulse 99 99 Oximetry Procedures - Laceration Laceration #1 Consent Obtained: verbal consent Indication: laceration Site: scalp Description: linear Type of Sutures: other (Skin adhesive) Patient Tolerated Procedure: well, no complications Medical Decision Making - Medical Decision Making Stated that he believes his tetanus shot less than 10 years old. Patient here with syncopal episode and found to be in atrial fibrillation that appears to be new onset and also rapid ventricular rate. Discussed with the patient and will admit to have cardiology consultation. The patient started on heparin and also Cardizem for rate control. The patient had chest x-ray that I interpreted as negative for acute infiltrate, pneumothorax, congestive heart failure Was pt. sent in by a medical professional or institution (Dr. PA, [employer], urgent care, hospital, or detention...) When possible be specific @ -[No] Did you speak to anyone other than the patient for history (EMS, parent, family, police, friend...)? What history was obtained from this source @ -[No] Did you review nursing and triage notes (agree or disagree)? Why? @ -[I reviewed and agree with nursing and triage notes] Were old charts reviewed (outside hosp., previous admission, EMS record, old EKG, old radiological studies, urgent care reports/EKG's, detention records)? Report findings @ -[Yes, old charts were reviewed] Differential Diagnosis (chest pain, altered mental status, abdominal pain women, abdominal pain men, vaginal bleeding, weakness, fever, dyspnea, syncope, headache, dizziness, GI bleed, back pain, seizure, CVA, palpatations, mental health, musculoskeletal)? @ -[Differential Syncope: Valvular disease, hypertrophic cardiomyopathy, pulmonary embolism, tamponade, tachycardia, bradycardia, FL, hypovolemia, hemorrhage, dissection, anemia, intracranial hemorrhage, seizure, hypoglycemia, carbon monoxide poisoning, this is not meant to be an all-inclusive list. EKG interpreted by me (3pts min.). @ -[I interpreted as above] X-rays interpreted by me (1pt min.). @ -[I interpreted as above CT interpreted by me (1pt min.). @ -[None done] U/S interpreted by me (1pt. min.). @ -[None done] What testing was considered but not performed or refused? (CT, X-rays, U/S, labs)? Why? @ -[None] What meds were considered but not given or refused? Why? @ -[None] Did you discuss the management of the patient with other professionals (alex cerna i.e. , PA, [employer], lab, RT, psych nurse, psychiatric social worker supervisor, knife edger, teacher, sailing officer, telephonic nurse case manager)? Give summary @ -[Case discussed with admitting physician and treatment recommendations inc orporated Was smoking cessation discussed for >3mins.? @ -[No] Was critical care preformed (if so, how long)? @ -[Yes, 35 minutes Were there social determinants of health that impacted care today? How? (Homelessness, low income, unemployed, alcoholism, drug addiction, transportation, low edu. Level, literacy, decrease access to med. care, long-term, rehab)? @ -[No] Was there de-escalation of care discussed even if they declined (Discuss DNR or withdrawal of care, Hospice)? DNR status @ -[No] What co-morbidities impacted this encounter? (DM, HTN, Smoking, COPD, CAD, Cancer, CVA, ARF, Chemo, Hep., AIDS, mental health diagnosis, sleep apnea, morbid obesity)? @ -[None] Was patient admitted / discharged? Hospital course, mention meds given and route, prescriptions, significant lab abnormalities, going to OR and other pertinent info. @ -[As above Undiagnosed new problem with uncertain prognosis? @ -[No] Drug Therapy requiring intensive monitoring for toxicity (Heparin, Nitro, Insulin, Cardizem)? @ -[Heparin and Cardizem Were any procedures done? @ -[I did apply Dermabond to the patient's scalp laceration, see above Diagnosis/symptom? @ -[Acute syncopal episode Atrial fibrillation with rapid ventricular rate Acute, or Chronic, or Acute on Chronic? @ -[Acute Uncomplicated (without systemic symptoms) or Complicated (systemic symptoms)? @ -[A-fib with RVR complicated by syncopal episode Side effects of treatment? @ -[No] Exacerbation, Progression, or Severe Exacerbation? @ -[No] Poses a threat to life or bodily function? How? (Chest pain, [place], [place], pneumonia, PE, COPD, DKA, ARF, appy, cholecystitis, CVA, Diverticulitis, Homicidal, Suicidal, threat to staff... and all critical care pts) @ -[Yes, atrial fibrillation increases risk of stroke All treatments are based on ideal body weight as in ED triage - Lab Data Result diagrams: 10/08/24 05:30 10/08/24 06:27 Lab Results 10/08/24 10/08/24 10/08/24 Range/Units 05:30 06:27 06:27 WBC 6.74 (4.50-10.00) 10*3/uL RBC 5.14 (4.40-5.60) 10*6/uL Hgb 16.3 (13.0-17.0) g/dL Hct 47.2 (39.6-50.0) % MCV 91.8 (80.0-97.0) fL MCH 31.7 (27.0-32.0) pg MCHC 34.5 (32.0-37.0) g/dL Plt Count 162 (140-440) 10*3/uL MPV 11.5 (9.5-12.2) fL Immature Gran % (Auto) 0.1 % Neutrophils % 59.3 % Lymphocytes % 25.5 % Monocytes % 11.0 % Eosinophils % 3.7 % Basophils % 0.4 % Immature Gran # 0.01 (0.00-0.04) 10*3/uL Neutrophils # 3.99 (1.80-7.70) 10*3/uL Lymphocytes # 1.72 (0.90-5.00) 10*3/uL Monocytes # 0.74 (0.20-1.00) 10*3/uL Eosinophils # 0.25 (0.04-0.35) 10*3/uL Basophils # 0.03 (0.00-0.10) 10*3/uL Sodium 135 L (137-145) mmol/L Potassium 4.0 (3.5-5.1) mmol/L Chloride 105 (98-107) mmol/L Carbon Dioxide 21 L (22-30) mmol/L Anion Gap 9 mmol/L BUN 20 (9-20) mg/dL Creatinine 0.69 (0.66-1.25) mg/dL Est GFR (CKD-EPI)AfAm >90 (>60 ml/min/1.73 sqM) Est GFR (CKD-EPI)NonAf >90 (>60 ml/min/1.73 sqM) Glucose 104 H (74-99) mg/dL Calcium 8.9 (8.4-10.2) mg/dL Total Bilirubin 0.8 (0.2-1.3) mg/dL AST 30 (17-59) U/L ALT 22 (4-49) U/L Alkaline Phosphatase 67 (38-126) U/L Troponin I <0.012 (0.000-0.034) ng/mL Total Protein 6.3 (6.3-8.2) g/dL Albumin 3.6 (3.5-5.0) g/dL Triglycerides (0.00-149.00) mg/dL Cholesterol (0.00-200.00) mg/dL LDL Cholesterol, Calc (0.0-131.0) mg/dL VLDL Cholesterol, Calc (5.00-40.00) mg/dL HDL Cholesterol (40.00-60.00) mg/dL Cholesterol/HDL Ratio Ratio 10/08/24 Range/Units 06:27 WBC (4.50-10.00) 10*3/uL RBC (4.40-5.60) 10*6/uL Hgb (13.0-17.0) g/dL Hct (39.6-50.0) % MCV (80.0-97.0) fL MCH (27.0-32.0) pg MCHC (32.0-37.0) g/dL Plt Count (140-440) 10*3/uL MPV (9.5-12.2) fL Immature Gran % (Auto) % Neutrophils % % Lymphocytes % % Monocytes % % Eosinophils % % Basophils % % Immature Gran # (0.00-0.04) 10*3/uL Neutrophils # (1.80-7.70) 10*3/uL Lymphocytes # (0.90-5.00) 10*3/uL Monocytes # (0.20-1.00) 10*3/uL Eosinophils # (0.04-0.35) 10*3/uL Basophils # (0.00-0.10) 10*3/uL Sodium (137-145) mmol/L Potassium (3.5-5.1) mmol/L Chloride (98-107) mmol/L Carbon Dioxide (22-30) mmol/L Anion Gap mmol/L BUN (9-20) mg/dL Creatinine (0.66-1.25) mg/dL Est GFR (CKD-EPI)AfAm (>60 ml/min/1.73 sqM) Est GFR (CKD-EPI)NonAf (>60 ml/min/1.73 sqM) Glucose (74-99) mg/dL Calcium (8.4-10.2) mg/dL Total Bilirubin (0.2-1.3) mg/dL AST (17-59) U/L ALT (4-49) U/L Alkaline Phosphatase (38-126) U/L Troponin I (0.000-0.034) ng/mL Total Protein (6.3-8.2) g/dL Albumin (3.5-5.0) g/dL Triglycerides 63.20 (0.00-149.00) mg/dL Cholesterol 145.00 (0.00-200.00) mg/dL LDL Cholesterol, Calc 90.9 (0.0-131.0) mg/dL VLDL Cholesterol, Calc 12.64 (5.00-40.00) mg/dL HDL Cholesterol 41.50 (40.00-60.00) mg/dL Cholesterol/HDL Ratio 3.49 Ratio Disposition Clinical Impression: Fall, Atrial fibrillation, Laceration of face Disposition: ADMITTED IP TO THIS HOSP Condition: Stable Is patient prescribed a controlled substance at d/c from ED?: No
[2024-10-08] MEDS: TOPICAL SKIN ADHESIVE 1 EACH AMP TOPICAL ONE (07:51)
[2024-10-08] MEDS ORDERED: NITROGLYCERIN SL TABS 0.4 MG TAB SUBLINGUAL PRN ×2 (07:53→08:05)
[2024-10-08] MEDS: DILTIAZEM 125 MG in DEXTROSE 5% IN WATER 100 ML IV SCH (09:03)
[2024-10-08] MEDS: ASPIRIN 81 MG PO SCH (09:04)
[2024-10-08] MEDS: METOPROLOL SUCCINATE (ER) 25 MG TAB.ER.24H PO SCH (09:04)
[2024-10-08] MEDS: DILTIAZEM 5 MG/ML 5 ML VIAL IVP STA (09:06)
--- NOTE | 2024-10-08 09:46 | CT ---
EXAMINATION TYPE: CT brain wo con DATE OF EXAM: 10/08/2024 COMPARISON: None CLINICAL INDICATION: Male, 69 years old with history of Fall, struck head; [facility], Fall, struck head TECHNIQUE: CT scan of the head is performed without contrast. CT DLP: 1245.[address] CTDI: mGy Automated exposure control for dose reduction was used. FINDINGS: There is no acute intracranial hemorrhage or midline shift identified. There is diffuse v entricular and sulcal prominence consistent with diffuse age-related cerebral atrophy. There is low- attenuation in the periventricular white matter consistent with chronic small vessel ischemic change. The globes are intact and the visualized sinuses are clear. IMPRESSION: No acute intracranial hemorrhage or midline shift. There is diffuse age-related cerebra l atrophy and chronic small vessel ischemic change noted. [facility], , 10/08/2024 9:44 AM
[2024-10-08] MEDS: HEPARIN SODIUM 1,000 UN/ML (10ML VL) IV ONE (10:32)
[2024-10-08] MEDS: HEPARIN SOD,PORK IN 0.45% NACL 25,000 UNIT in 0.45% NACL 1 250ML.BAG IV SCH (10:33)
[2024-10-08] MEDS: CHOLECALCIFEROL 25 MCG (1000 IU) TABLET PO SCH (10:36)
[2024-10-08] MEDS: PRASUGREL 10 MG TAB PO SCH (10:37)
[2024-10-08] MEDS: MAGNESIUM OXIDE 400 MG TAB PO SCH (10:37)
--- NOTE | 2024-10-08 13:51 | P.HPIM ---
History of Present Illness H&P Date: 10/08/24 This is a 69-year-old male with medical history significant for myocardial infarction with coronary artery disease and prior stenting, arthritis, hard of hearing. Patient comes into the hospital early this morning secondary to a syncopal episode at home. Patient got up to the bathroom to urinate he was standing and he felt himself and having lightheaded. He passed out. Patient has a laceration to the forehead on the scalp. Patient's found him unconscious in the bathtub and called EMS. There was no suspected seizure activity noted. Patient was recently mid to the hospital and underwent cardiac catheterization and stent placement about 1 month ago. He was discharged on Effient, aspirin and lipitor. Patient states he and his were set up to see a hollistic provider and states he felt great and did not end up taking the recommended cardiac medications. He prefers to go a more hollistic route. His CBC is unremarkable, sodium level of 135 BUN of 20 creatinine of 0.69. His t roponin level was negative x 2. A brain CT was completed this morning revealing no acute intracranial hemorrhage or midline shift. His chest x-ray reveals cardiomegaly without any acute pulmonary process. EKG reveals atrial fibrillation with a heart rate of [address] or T wave changes are evident. Patient was discharged from the hospital on September 12 after suffering an acute myocardial infarction stenting of the ramus intermedius with reduction of stenosis from 80% to 0%. Patient also had a stent of a chronic occlusion of the mid LAD. Patient's ejection fraction 55% mild aortic stenosis. There is residual CAD in the left PL branches needs staged PCI and this is per his catheterization report from September 2024. Was admitted to the hospital placed on IV heparin and cardiology has been consulted. Had a long discussion with the patient regarding risk vs. benefit of cardiac medications. He is agreeable to take the aspirin, effient and also for anticoagulation at this time. He does not want to take a statin. Pending further recommendations from cardiology. REVIEW OF SYSTEMS: CONSTITUTIONAL: No fever, no malaise, no fatigue. HEENT: No recent visual problems or hearing problems. Denied any sore throat. CARDIOVASCULAR: No chest pain, orthopnea, PND, no palpitations, no syncope. PULMONARY: No shortness of breath, no cough, no hemoptysis. GASTROINTESTINAL: No diarrhea, no nausea, no vomiting, no abdominal pain. NEUROLOGICAL: No headaches, no weakness, no numbness. HEMATOLOGICAL: Denies any bleeding or petechiae. GENITOURINARY: Denies any burning micturition, frequency, or urgency. MUSCULOSKELETAL/RHEUMATOLOGICAL: Denies any joint pain, swelling, or any muscle pain. ENDOCRINE: Denies any polyuria or polydipsia. The rest of the 14-point review of systems is negative. PHYSICAL EXAMINATION: GENERAL: The patient is alert and oriented x3, not in any acute distress. Well developed, well nourished. HEENT: Pupils are round and equally reacting to light. EOMI. No scleral icterus. No conjunctival pallor. Normocephalic, atraumatic. No pharyngeal erythema. No thyromegaly. CARDIOVASCULAR: S1 and S2 present. No murmurs, rubs, or gallops. PULMONARY: Chest is clear to auscultation, no wheezing or crackles. ABDOMEN: Soft, nontender, nondistended, normoactive bowel sounds. No palpable organomegaly. MUSCULOSKELETAL: No joint swelling or deformity. EXTREMITIES: No cyanosis, clubbing, or pedal edema. NEUROLOGICAL: Gross neurological examination did not reveal any focal deficits. SKIN: No rashes. Assessment and Plan NOS atrial fibrillation with RVR Syncopal episodes possibly from the atrial fibrillation Coronary artery disease with recent PCI in 09/2024 did not take the aspirin/effient or statin on discharge Hard of Hearing DVT prophylaxis: IV heparin Plan Resume cardiac medications Patient refusing statin Continue IV heparin Continue IV cardizem; rate controlled Patient can be discharged home later this evening if cleared by the cardiology team and he is agreeable to this plan Greater than 35 minutes have been spent with this patient in discussion at the bedside, coordination of care and chart review. The impression and plan of care has been dictated by Carol Cain Nurse Practitioner as directed. Dr. Wilman MD I have performed a history and physical examination and medical decision making of this patient, discussed the same with the dictator, and agree with the dictators assessment and plan as written, documented as a scribe. Based on total visit time, I have performed more than 50% of this visit. Past Medical History Past Medical History: Hearing Disorder / Deafness, Myocardial Infarction (ID), Osteoarthritis (OA) History of Any Multi-Drug Resistant Organisms: None Reported Past Surgical History: Back Surgery, Heart Catheterization With Stent, Hernia Repair, Orthopedic Surgery, Tonsillectomy Additional Past Surgical History / Comment(s): LAMINECTOMY, BACK FUSION , HERNIA REPAIR X3, 2 hearts stents Past Anesthesia/Blood Transfusion Reactions: No Reported Reaction Past Psychological History: No Psychological Hx Reported Smoking Status: Never smoker Past Alcohol Use History: Rare Past Drug Use History: None Reported - Past Family History Mother Family Medical History: No Reported History Additional Family Medical History / Comment(s): Father with CABG Medications and Allergies Home Medications Medication Instructions Recorded Confirmed Type Magnesium Gluconate [Magonate] 500 mg PO DAILY 04/29/20 10/08/24 History Zinc 50 mg PO DAILY 04/29/20 10/08/24 History Cholecalciferol (Vitamin D3) 50 mcg PO DIRECTED 09/11/24 10/08/24 History [Vitamin D3 (50 Mcg = 2000 Iu)] Saw [place] 500 mg PO TID 09/11/24 10/08/24 History Aspirin 81 mg PO DIRECTED 10/08/24 10/08/24 History Atorvastatin [Lipitor] 80 mg PO DIRECTED 10/08/24 10/08/24 History Cardio Miracle Powder 1 dose PO BID 10/08/24 10/08/24 History Ibuprofen [Motrin Ib] 400 mg PO QID PRN 10/08/24 10/08/24 History Metoprolol Succinate (ER) [Toprol 25 mg PO DIRECTED 10/08/24 10/08/24 History Xl] Nitroglycerin Sl Tabs [Nitrostat] 0.4 mg SL Q5M PRN 10/08/24 10/08/24 History Prasugrel [Effient] 10 mg PO DIRECTED 10/08/24 10/08/24 History Allergies Allergy/AdvReac Type Severity Reaction Status Date / Time No Known Allergies Allergy Verified 10/08/24 09:47 Physical Exam Vitals: Vital Signs Temp Pulse Resp BP Pulse Ox 10/08/24 09:13 128 H 19 99 10/08/24 07:53 117 H 17 107/89 99 10/08/24 04:57 97.4 F L 97 16 131/81 100 Intake and Output 10/07/24 10/08/24 10/08/24 22:59 06:59 14:59 Other: Weight 72.575 kg Results CBC & Chem 7: 10/08/24 05:30 10/08/24 06:27 Labs: Abnormal Lab Results - Last 24 Hours (Table) 10/08/24 Range/Units 06:27 Sodium 135 L (137-145) mmol/L Carbon Dioxide 21 L (22-30) mmol/L Glucose 104 H (74-99) mg/dL Assessment and Plan Time with Patient: Greater than 30
[2024-10-08] MEDS: ATORVASTATIN 80 MG TAB PO SCH (20:54)
[2024-10-09] MEDS ORDERED: ASPIRIN 325 MG TAB PO SCH (09:00)
[2024-10-09] MEDS: APIXABAN 5 MG TAB PO SCH (09:48)
[2024-10-09 10:17] LABS: Chol/HDL Ratio 3.49 Ratio; LDL Cholesterol,Calculated 90.9 mg/dL (0.0-131.0); VLDL Calculation 12.64 mg/dL (5.00-40.00)
--- NOTE | 2024-10-09 10:38 | P.CRDCN ---
History of Present Illness History of present illness: HISTORY OF PRESENT ILLNESS: This is a 69-year-old male with a past medical history significant for coronary artery disease with recent stenting to the mid LAD and ramus intermedius, hyper lipidemia, and BPH. Patient follows in the office with Dr. Joe. We have been asked to see the patient in consultation for new onset atrial fibrillation. Patient examined at the bedside. Patient states that yesterday morning he got up to use the restroom when he began to feel unsteady and he passed out onto the ground. EMS was called. Patient was found to be in A-fib. Patient denies any known history of atrial fibrillation. He remains in atrial fibrillation this morning with a heart rate in the 80s. He denies any chest pain or pressure. He denies any shortness of breath. Denies any dizziness or lightheadedness. Additionally, patient has not been taking his cardiac medications and states he prefers a holistic route. He is now agreeable to taking his medications. DIAGNOSTICS: - EKG reveals atrial fibrillation - Chest xray cardiomegaly without acute pulmonary process. - Laboratory data: WBC 6.74. Hemoglobin 16.3. Platelet count 162. Sodium 135. Potassium 4.0. BUN 20. Creatinine 0.69. Troponin negative x 3. TSH 2.690. - Current home cardiac medications include aspirin 81 mg daily, Lipitor 80 mg daily, metoprolol succinate 25 mg daily, Effient 10 mg daily. - Most recent echocardiogram obtained in September 2024 revealed ejection fraction 55%, mild aortic stenosis with mean gradient 16 mmHg - Cardiac catheterization history: September 2024 revealing subtotally occluded r amus intermedius, totally occluded mid to distal LAD, moderate significant disease in the left PLV, patient underwent stenting of the ramus intermedius and mid LAD REVIEW OF SYSTEMS: At the time of my exam: CONSTITUTIONAL: Denies fever or chills. HEENT: Denies blurred vision, vision changes, or eye pain. Denies hemoptysis CARDIOVASCULAR: Denies chest pain. Denies orthopnea. Denies PND. Denies p alpitations RESPIRATORY: Denies shortness of breath. GASTROINTESTINAL: Denies abdominal pain. Denies nausea or vomiting. HEMATOLOGIC: Denies bleeding disorders. GENITOURINARY: Denies any blood in urine. SKIN: Denies pruitis. Denies rash. PHYSICAL EXAM: VITAL SIGNS: Reviewed. GENERAL: Well-developed in no acute distress. HEENT: Head is normocephalic. Pupils are equal, round. Sclerae anicteric. Mucous membranes of the mouth are moist. Neck supple. No JVD or thyromegaly LUNGS: Respirations even and unlabored. Lungs essentially clear to auscultation bilaterally. HEART: Irregular rate and rhythm. S1 and S2 heard. ABDOMEN: Soft. Nondistended. Nontender. EXTREMITIES: Normal range of motion. No clubbing or cyanosis. Peripheral pulses intact. No lower extremity edema NEUROLOGIC: Awake and alert. Oriented x 3. ASSESSMENT: Syncope, suspect vasovagal New onset atrial fibrillation with controlled ventricular rate Coronary artery disease with recent stenting of ramus intermedius and LAD, September 2024 Hyperlipidemia BPH Noncompliance with cardiac medications PLAN: Obtain 2D echo to assess cardiac structure and function Discontinue IV Cardizem Discontinue IV heparin. Begin Eliquis 5 mg twice a day Continue Effient. Discontinue aspirin. Patient continues to refuse statin therapy Continue telemetry monitoring Possible discharge home tomorrow if patient remains stable Nurse practitioner note has been reviewed by physician. Signing provider agrees with the documented findings, assessment, and plan of care documented by STEAM PRESSURE CHAMBER OPERATOR as a scribe. Past Medical History Past Medical History: Hearing Disorder / Deafness, Myocardial Infarction (ME), O steoarthritis (OA) Last Myocardial Infarction Date:: 09/2024 History of Any Multi-Drug Resistant Organisms: None Reported Past Surgical History: Back Surgery, Heart Catheterization With Stent, Hernia Repair, Orthopedic Surgery, Tonsillectomy Additional Past Surgical History / Comment(s): LAMINECTOMY, BACK FUSION , HERNIA REPAIR X3, 2 hearts stents Past Anesthesia/Blood Transfusion Reactions: No Reported Reaction Date of Last Stent Placement:: 2024 Smoking Status: Never smoker - Past Family History Mother Family Medical History: No Reported History Additional Family Medical History / Comment(s): Father with CABG Medications and Allergies Home Medications Medication Instructions Recorded Confirmed Type Magnesium Gluconate [Magonate] 500 mg PO DAILY 04/29/20 10/08/24 History Zinc 50 mg PO DAILY 04/29/20 10/08/24 History Cholecalciferol (Vitamin D3) 50 mcg PO DIRECTED 09/11/24 10/08/24 History [Vitamin D3 (50 Mcg = 2000 Iu)] Saw [place] 500 mg PO TID 09/11/24 10/08/24 History Aspirin 81 mg PO DIRECTED 10/08/24 10/08/24 History Atorvastatin [Lipitor] 80 mg PO DIRECTED 10/08/24 10/08/24 History Cardio Miracle Powder 1 dose PO BID 10/08/24 10/08/24 History Ibuprofen [Motrin Ib] 400 mg PO QID PRN 10/08/24 10/08/24 History Metoprolol Succinate (ER) [Toprol 25 mg PO DIRECTED 10/08/24 10/08/24 History Xl] Nitroglycerin Sl Tabs [Nitrostat] 0.4 mg SL Q5M PRN 10/08/24 10/08/24 History Prasugrel [Effient] 10 mg PO DIRECTED 10/08/24 10/08/24 History Allergies Allergy/AdvReac Type Severity Reaction Status Date / Time No Known Allergies Allergy Verified 10/08/24 09:47 Physical Exam Vitals: Vital Signs Temp Pulse Pulse Resp BP BP Pulse Ox 10/09/24 08:00 97.7 F 71 18 103/68 100 10/09/24 03:07 98.3 F 73 20 114/67 99 10/09/24 01:17 16 10/08/24 23:26 98.3 F 68 16 100/64 98 10/08/24 20:00 98.1 F 71 18 105/62 99 10/08/24 16:59 97.5 F L 77 18 118/71 90 L 10/08/24 14:08 98.2 F 71 18 98/61 99 10/08/24 14:06 92 17 99/68 99 10/08/24 10:50 117 H 12 99 Intake and Output 10/08/24 10/09/24 10/09/24 22:59 06:59 14:59 Intake Total 281.13 80.25 43.25 Output Total 0 Balance 281.13 80.25 43.25 Intake: Intake, IV Titration 41.13 80.25 43.25 Amount Diltiazem 125 mg In 15 80.25 43.25 Dextrose 5% in Water 100 ml @ 5 MG/HR 5 mls/hr IV .Q24H [facility] Rx#:[id number] Heparin Sod,Pork in 0.45% 26.13 NaCl 25,000 unit In 0.45 % NaCl 1 250ml.bag @ 12 UNITS/KG/HR 8.709 mls/hr IV .Q24H [facility] Rx#: [id number] Oral 240 Output: Gastric Drainage 0 Urine 0 Stool 0 Urine/Stool Mix 0 Emesis 0 Oral Regurgitation 0 Other 0 Other: # Voids 0 # Bowel Movements 0 Weight 74.5 kg Results 10/08/24 05:30 10/08/24 06:27 Cardiac Enzymes 10/08/24 Range/Units 12:11 Troponin I <0.012 (0.000-0.034) ng/mL Coagulation 10/08/24 10/09/24 Range/Units 18:46 06:55 APTT 47.9 H 42.7 H (22.0-30.0) sec Lipids 10/08/24 Range/Units 06:27 Triglycerides 63.20 (0.00-149.00) mg/dL Cholesterol 145.00 (0.00-200.00) mg/dL HDL Cholesterol 41.50 (40.00-60.00) mg/dL Cholesterol/HDL Ratio 3.49 Ratio Current Medications Generic Name Dose Route Start Last Admin Trade Name Freq PRN Reason Stop Dose Admin Apixaban 5 mg 10/09/24 09:45 10/09/24 09:48 Apixaban 5 Mg Tab PO 5 mg BID [facility] Administration Protocol Atorvastatin Calcium 80 mg 10/08/24 21:00 10/08/24 20:54 Atorvastatin 80 Mg Tab PO Not Given HS [facility] Cholecalciferol 50 mcg 10/08/24 09:30 10/09/24 08:54 Cholecalciferol 25 Mcg (1000 Iu) Tablet PO 50 mcg DAILY [facility] Administration Magnesium Oxide 400 mg 10/08/24 09:30 10/09/24 08:54 Magnesium Oxide 400 Mg Tab PO 400 mg DAILY [facility] Administration Metoprolol Succinate 25 mg 10/08/24 09:00 10/09/24 08:54 Metoprolol Succinate (Er) 25 Mg Tab.Er.24h PO 25 mg DAILY [facility] Administration Nitroglycerin 0.4 mg 10/08/24 07:53 Nitroglycerin Sl Tabs 0.4 Mg Tab SUBLINGUAL Q5M PRN Chest Pain Nitroglycerin 0.4 mg 10/08/24 08:05 Nitroglycerin Sl Tabs 0.4 Mg Tab SUBLINGUAL Q5M PRN Chest Pain Prasugrel 10 mg 10/08/24 09:30 10/09/24 08:54 Prasugrel 10 Mg Tab PO 10 mg DAILY [facility] Administration Intake and Output 10/08/24 10/09/24 10/09/24 22:59 06:59 14:59 Intake Total 281.13 80.25 43.25 Output Total 0 Balance 281.13 80.25 43.25 Intake: Intake, IV Titration 41.13 80.25 43.25 Amount Diltiazem 125 mg In 15 80.25 43.25 Dextrose 5% in Water 100 ml @ 5 MG/HR 5 mls/hr IV .Q24H [facility] Rx#:[id number] Heparin Sod,Pork in 0.45% 26.13 NaCl 25,000 unit In 0.45 % NaCl 1 250ml.bag @ 12 UNITS/KG/HR 8.709 mls/hr IV .Q24H [facility] Rx#: [id number] Oral 240 Output: Gastric Drainage 0 Urine 0 Stool 0 Urine/Stool Mix 0 Emesis 0 Oral Regurgitation 0 Other 0 Other: # Voids 0 # Bowel Movements 0 Weight 74.5 kg 10/08/24 05:30 10/08/24 06:27
--- NOTE | 2024-10-09 13:40 | CA ---
Transthoracic Echo Report Name: Shiva Conklin Age: 69 Gender: M : 1955 Exam Date: 10/09/2024 12:24 Exam Location: [facility] Ht (in): Wt (lb): Ordering Physician: Carine Blanchard Attending/Referring Phys: [id number], Lo Helper/Driver Daisy Michael, [facility] Procedure CPT: Indications: lv function, new onset AF Cardiac Hx: Technical Quality: Good Contrast 1: Total Dose (mL): Contrast 2: Total Dose (mL): MEASUREMENTS (Male / Female) Normal Values 2D ECHO LV Diastolic Diameter PLAX 3.9 cm 4.2 - 5.9 / 3.9 - 5.3 cm LV Systolic Diameter PLAX 2.3 cm IVS Diastolic Thickness 1.0 cm 0.6 - 1.0 / 0.6 - 0.9 cm LVPW Diastolic Thickness 0.9 cm 0.6 - 1.0 / 0.6 - 0.9 cm LV Relative Wall Thickness 0.5 RV Internal Dim ED PLAX 2.4 cm LVOT Diameter 2.3 cm LA Systolic Diameter LX 2.9 cm 3.0 - 4.0 / 2.7 - 3.8 cm LV Diastolic Volume MOD BP 71.6 cm??? 67 - 155 / 56 - 104 cm??? LV Systolic Volume MOD BP 22.0 cm??? 22 - 58 / 19 - 49 cm??? LV Ejection Fraction MOD BP 69.3 % >= 55 % LV Diastolic Volume MOD 4C 68.4 cm??? LV Systolic Volume MOD 4C 20.7 cm??? LV Ejection Fraction MOD 4C 69.7 % LV Diastolic Length 4C 7.0 cm LV Systolic Length 4C 6.0 cm LV Diastolic Volume MOD 2C 71.0 cm??? LV Systolic Volume MOD 2C 20.7 cm??? LV Ejection Fraction MOD 2C 70.8 % LV Diastolic Length 2C 7.5 cm LV Systolic Length 2C 6.9 cm LA Volume 37.3 cm??? 18 - 58 / 22 - 52 cm??? M-MODE Aortic Root Diameter MM 3.8 cm LA Systolic Diameter MM 2.5 cm LA Ao Ratio MM 0.7 AV Cusp Separation MM 1.0 cm DOPPLER AV Peak Velocity 217.8 cm/s AV Peak Gradient 19.0 mmHg AV Mean Velocity 160.3 cm/s AV Mean Gradient 11.4 mmHg AV Velocity Time Integral 45.4 cm LVOT Peak Velocity 101.8 cm/s LVOT Peak Gradient 4.1 mmHg LVOT Velocity Time Integral 19.0 cm LVOT Stroke Volume 76.4 cm??? AV Area Cont Eq vti 1.7 cm??? AV Area Cont Eq pk 1.9 cm??? MV Area PHT 3.1 cm??? Mitral E Point Velocity 54.4 cm/s Mitral A Point Velocity 65.1 cm/s Mitral E to A Ratio 0.8 MV Deceleration Time 246.5 ms TR Peak Velocity 155.9 cm/s TR Peak Gradient 9.7 mmHg FINDINGS Left Ventricle Left ventricular ejection fraction is estimated at 55-60 %. Normal left ventricular systolic function with no obvious regional wall motion abnormalities. Left ventricular cavity size normal. Left ventricular wall thickness normal. Right Ventricle Normal right ventricular size and function. Right ventricular systolic pressure within normal limits. Right Atrium Mild right atrial dilatation. Left Atrium Mild left atrial dilatation. Mitral Valve Structurally normal mitral valve. Trace to mild mitral regurgitation. No mitral stenosis. Aortic Valve Aortic valve not well visualized. [id number] aortic stenosis with a peak gradient of 20 mmHg and a mean gradient of 12 mmHg. Fixed NCC. Diffuse thickening of the aortic valve cusps with reduced excursion. Trace to mild aortic regurgitation. Tricuspid Valve Structurally normal tricuspid valve. Mild tricuspid regurgitation. No tricuspid stenosis. Pulmonic Valve Structurally normal pulmonic valve. Trace pulmonic regurgitation. No pulmonic stenosis. Pericardium No pericardial or pleural effusion. Aorta Mild aortic dilatation at the level of the sinuses of valsalva (root). CONCLUSIONS Normal LV function Mild to moderate aortic stenosis Previewed by: Dr. Gee Hopper MD (Electronically Signed) Final Date: 09 Oct 2024 13:39
--- NOTE | 2024-10-09 18:32 | P.PN ---
Subjective Progress Note Date: 10/09/24 This is a 69-year-old male with medical history significant for myocardial infarction with coronary artery disease and prior stenting, arthritis, hard of hearing. Patient comes into the hospital early this morning secondary to a syncopal episode at home. Patient got up to the bathroom to urinate he was s tanding and he felt himself and having lightheaded. He passed out. Patient has a laceration to the forehead on the scalp. Patient's found him unconscious in the bathtub and called EMS. There was no suspected seizure activity noted. Patient was recently mid to the hospital and underwent cardiac catheterization and stent placement about 1 month ago. He was discharged on Effient, aspirin a nd lipitor. Patient states he and his were set up to see a hollistic provider and states he felt great and did not end up taking the recommended cardiac medications. He prefers to go a more hollistic route. His CBC is unremarkable, sodium level of 135 BUN of 20 creatinine of 0.69. His troponin level was negative x 2. A brain CT was completed this morning revealing no acute intracranial hemorrhage or midline shift. His chest x-ray reveals cardiomegaly without any acute pulmonary process. EKG reveals atrial fibrillation with a heart rate of [address] or T wave changes are evide nt. Patient was discharged from the hospital on September 12 after suffering an acute myocardial infarction stenting of the ramus intermedius with reduction of stenosis from 80% to 0%. Patient also had a stent of a chronic occlusion of the mid LAD. Patient's ejection fraction 55% mild aortic stenosis. There is residual CAD in the left PL branches needs staged PCI and this is per his catheterization report from September 2024. Was admitted to the hospital placed on IV heparin and cardiology has been consulted. Had a long discussion with the patient regarding risk vs. benefit of cardiac medications. He is agreeable to take the aspirin, effient and also for anticoagulation at this time. He does not want to take a statin. Pending further recommendations from cardiology. 10/09/2024 Patient is evaluated today in follow up. He has been up ambulating the hallways. No reports of chest pains or shortness of breath. He has been continued on effient. Started on eliquis 5 mg twice daily. Currently maintaining sinus mechanism. Echocardiogram reveals EF 55-60% with normal LV function, mild to moderate aortic stenosis. TSH 2.690. REVIEW OF SYSTEMS: CONSTITUTIONAL: No fever, no malaise, no fatigue. HEENT: No recent visual problems or hearing problems. Denied any sore throat. CARDIOVASCULAR: No chest pain, orthopnea, PND, no palpitations, no syncope. PULMONARY: No shortness of breath, no cough, no hemoptysis. GASTROINTESTINAL: No diarrhea, no nausea, no vomiting, no abdominal pain. NEUROLOGICAL: No headaches, no weakness, no numbness. PHYSICAL EXAMINATION: GENERAL: The patient is alert and oriented x3, not in any acute distress. Well developed, well nourished. HEENT: Pupils are round and equally reacting to light. EOMI. No scleral icterus. No conjunctival pallor. Normocephalic, atraumatic. No pharyngeal erythema. No thyromegaly. CARDIOVASCULAR: S1 and S2 present. No murmurs, rubs, or gallops. PULMONARY: Chest is clear to auscultation, no wheezing or crackles. ABDOMEN: Soft, nontender, nondistended, normoactive bowel sounds. No palpable organomegaly. MUSCULOSKELETAL: No joint swelling or deformity. EXTREMITIES: No cyanosis, clubbing, or pedal edema. NEUROLOGICAL: Gross neurological examination did not reveal any focal deficits. SKIN: No rashes. Assessment and Plan NOS atrial fibrillation with RVR, currently maintaining sinus mechanism Syncopal episodes possibly from the atrial fibrillation Coronary artery disease with recent PCI in 09/2024 did not take the aspirin/effient or statin on discharge Hard of Hearing DVT prophylaxis: Eliquis Plan Continue cardiac telemetry Patient refusing statin Patient currently maintained on effient and eliquis. He is continued on toprol XL and has been weaned off the IV cardizem Encouraged to increase activity level Planning for DC home in the next 24 to 48 hours The impression and plan of care has been dictated by Carol Cain Nurse Practitioner as directed. Dr. Wilman MD I have performed a history and physical examination and medical decision making of this patient, discussed the same with the dictator, and agree with the dictators assessment and plan as written, documented as a scribe. Based on total visit time, I have performed more than 50% of this visit. Objective - Vital Signs Vital signs: Vital Signs Temp 97.7 F 10/09/24 08:00 Pulse 60 10/09/24 16:00 Resp 18 05/03/25 16:00 BP 113/70 10/09/24 16:00 Pulse Ox 100 10/09/24 16:00 FiO2 Intake & Output 10/08/24 10/09/24 10/09/24 18:59 06:59 18:59 Intake Total 281.13 80.25 494.734 Output Total 0 Balance 281.13 80.25 494.734 Weight 72.575 kg 74.5 kg Intake: Intake, IV Titration 41.13 80.25 254.734 Amount Diltiazem 125 mg In 15 80.25 43.25 Dextrose 5% in Water 100 ml @ 5 MG/HR 5 mls/hr IV .Q24H [facility] Rx#:[id number] Heparin Sod,Pork in 0.45% 26.13 211.484 NaCl 25,000 unit In 0.45 % NaCl 1 250ml.bag @ 12 UNITS/KG/HR 8.709 mls/hr IV .Q24H [facility] Rx#: [id number] Oral 240 240 Output: Gastric Drainage 0 Urine 0 Stool 0 Urine/Stool Mix 0 Emesis 0 Oral Regurgitation 0 Other 0 Other: # Voids 0 # Bowel Movements 0 - Labs CBC & Chem 7: 10/08/24 05:30 10/08/24 06:27 Labs: Abnormal Lab Results - Last 24 Hours (Table) 10/08/24 10/09/24 Range/Units 18:46 06:55 APTT 47.9 H 42.7 H (22.0-30.0) sec Assessment and Plan Time with Patient: Less than 30
[2024-10-10] MEDS ORDERED: METOPROLOL SUCCINATE (ER) 50 MG TAB.ER.24H PO SCH (09:00)
[2024-10-10] MEDS: METOPROLOL SUCCINATE (ER) 25 MG TAB.ER.24H PO STA (09:01)
[2024-10-10 09:48] VITALS: BP 102/69; PULSE 81; RESP 16; TEMP 98.2
--- NOTE | 2024-10-10 10:15 | P.PN ---
Subjective HISTORY OF PRESENT ILLNESS: This is a 69-year-old male with a past medical history significant for coronary artery disease with recent stenting to the mid LAD and ramus intermedius, hyperlipidemia, and BPH. Patient follows in the office with Dr. Joe. We have been asked to see the patient in consultation for new onset atrial fibrillation. Patient examined at the bedside. Patient states that yesterday morning he got up to use the restroom when he began to feel unsteady and he passed out onto the ground. EMS was called. Patient was found to be in A-fib. Patient denies any known history of atrial fibrillation. He remains in atrial fibrillation this morning with a heart rate in the 80s. He denies any chest pain or pressure. He denies any shortness of breath. Denies any dizziness or lightheadedness. Additionally, patient has not been taking his cardiac medications and states he prefers a holistic route. He is now agreeable to taking his medications. DIAGNOSTICS: - EKG reveals atrial fibrillation - Chest xray cardiomegaly without acute pulmonary process. - Laboratory data: WBC 6.74. Hemoglobin 16.3. Platelet count 162. Sodium 135. Potassium 4.0. BUN 20. Creatinine 0.69. Troponin negative x 3. TSH 2.690. - Current home cardiac medications include aspirin 81 mg daily, Lipitor 80 mg daily, metoprolol succinate 25 mg daily, Effient 10 mg daily. - Most recent echocardiogram obtained in September 2024 revealed ejection fraction 55%, mild aortic stenosis with mean gradient 16 mmHg - Cardiac catheterization history: September 2024 revealing subtotally occluded ramus intermedius, totally occluded mid to distal LAD, moderate significant disease in the left PLV, patient underwent stenting of the ramus intermedius and mid LAD 10/10/2024 Patient examined this morning at the bedside. Patient currently denies chest pain or pressure. He denies shortness of breath. He does report having some occasional lightheadedness. Denies any palpitations. He is maintaining sinus mechanism this morning. 2D echo reveals ejection fraction 55 to 60%, mild to moderate aortic stenosis with peak gradient of 20 mmHg and mean gradient of 12 mmHg, trace to mild aortic regurgitation, mild tricuspid regurgitation. PHYSICAL EXAM: VITAL SIGNS: Reviewed. GENERAL: Well-developed in no acute distress. HEENT: Head is normocephalic. Pupils are equal, round. Sclerae anicteric. Mucous membranes of the mouth are moist. Neck supple. No JVD or thyromegaly LUNGS: Respirations even and unlabored. Lungs essentially clear to auscultation bilaterally. HEART: Regular rate and rhythm. S1 and S2 heard. ABDOMEN: Soft. Nondistended. Nontender. EXTREMITIES: Normal range of motion. No clubbing or cyanosis. Peripheral pulses intact. No lower extremity edema NEUROLOGIC: Awake and alert. Oriented x 3. ASSESSMENT: Syncope, suspect vasovagal New onset atrial fibrillation with controlled ventricular rate Coronary artery disease with recent stenting of ramus intermedius and LAD, September 2024 Hyperlipidemia BPH Noncompliance with cardiac medications PLAN: Continue Eliquis 5 mg twice a day. Continue Effient. Aspirin discontinued yesterday. Patient continues to refuse statin therapy Continue current dose of metoprolol 25 mg daily. Continue telemetry monitoring Patient is stable for discharge home today from a cardiac standpoint Nurse practitioner note has been reviewed by physician. Signing provider agrees with the documented findings, assessment, and plan of care documented by ENTERPRISE SALES PERSON as a scribe. Objective - Vital Signs Vital signs: Vital Signs Temp 98.2 F 10/10/24 08:00 Pulse 81 10/10/24 08:00 Resp 16 10/10/24 08:00 BP 102/69 10/10/24 08:00 Pulse Ox 97 10/10/24 08:00 FiO2 Intake & Output 10/09/24 10/10/24 10/10/24 18:59 06:59 18:59 Intake Total 494.734 120 Output Total 0 0 0 Balance 494.734 0 120 Weight 74.4 kg Intake: Intake, IV Titration 254.734 Amount Diltiazem 125 mg In 43.25 Dextrose 5% in Water 100 ml @ 5 MG/HR 5 mls/hr IV .Q24H [facility] Rx#:[id number] Heparin Sod,Pork in 0.45% 211.484 NaCl 25,000 unit In 0.45 % NaCl 1 250ml.bag @ 12 UNITS/KG/HR 8.709 mls/hr IV .Q24H [facility] Rx#: [id number] Oral 240 120 Output: Gastric Drainage 0 0 Urine 0 0 Stool 0 0 0 Urine/Stool Mix 0 0 Emesis 0 0 Oral Regurgitation 0 0 Other 0 0 Other: # Voids 0 0 # Bowel Movements 0 0 - Labs CBC & Chem 7: 10/08/24 05:30 10/08/24 06:27
[2024-10-11] MEDS ORDERED: METOPROLOL SUCCINATE (ER) 25 MG TAB.ER.24H PO SCH (09:00)
[2024-10-11] MEDS ORDERED: METOPROLOL SUCCINATE (ER) 50 MG TAB.ER.24H PO SCH (09:00)
--- NOTE | 2024-10-13 21:11 | P.DS ---
Providers Date of admission: 10/08/24 07:53 Attending physician: Geo Medina Consults: 10/08/24 07:53 Consult Physician Routine Consulting Provider: Gee Hopper Consult Reason/Comments: new onset atrial fibrillation Do you want consulting provider notified?: Yes Primary care physician: Jose Salcedo MD Hospital Course: Final Diagnosis NOS atrial fibrillation with RVR, currently maintaining sinus mechanism Syncopal episodes possibly from the atrial fibrillation Coronary artery disease with recent PCI in 09/2024 did not take the aspirin/effient or statin on discharge Hard of Hearing Discharge disposition Patient is stable for discharge home. Patient has been discharged on eliquis 5 mg twice daily along with effient. He states he will be compliant with medications. He does not want to take the statin. Heart rate controlled. Recommend close follow up with tariff publishing agent on discharge. Hospital Course This is a 69-year-old male with medical history significant for myocardial infarction with coronary artery disease and prior stenting, arthritis, hard of hearing. Patient comes into the hospital early this morning secondary to a syncopal episode at home. Patient got up to the bathroom to urinate he was standing and he felt himself and having lightheaded. He passed out. Patient has a laceration to the forehead on the scalp. Patient's found him unconscious in the bathtub and called EMS. There was no suspected seizure activity noted. Patient was recently mid to the hospital and underwent cardiac catheterization and stent placement about 1 month ago. He was discharged on Effient, aspirin and lipitor. Patient states he and his were set up to see a hollistic provider and states he felt great and did not end up taking the recommended cardiac medications. He prefers to go a more hollistic route. His CBC is unremarkable, sodium level of 135 BUN of 20 creatinine of 0.69. His troponin level was negative x 2. A brain CT was completed this morning revealing no acute intracranial hemorrhage or midline shift. His chest x-ray reveals cardiomegaly without any acute pulmonary process. EKG reveals atrial fibrillation with a heart rate of [address] or T wave changes are evident. Patient was discharged from the hospital on September 12 after suffering an acute myocardial infarction stenting of the ramus intermedius with reduction of stenosis from 80% to 0%. Patient also had a stent of a chronic occlusion of the mid LAD. Patient's ejection fraction 55% mild aortic stenosis. There is residual CAD in the left PL branches needs staged PCI and this is per his catheterization report from September 2024. Was admitted to the hospital placed on IV heparin and cardiology has been consulted. Had a long discussion with the patient regarding risk vs. benefit of cardiac medications. He is agreeable to take the aspirin, effient and also for anticoagulation at this time. He does not want to take a statin. He was monitored on the cardiac floor. Heart rate con trolled. Not reporting any dizziness or lightheadedness. Repeat Echocardiogram reveals EF 55-60% with normal LV function, mild to moderate aortic stenosis. TSH 2.690. He has been up ambulating. Reporting no chest pain or shortness of breath. He will be discharged home. Please see mediation reconciliation for a list of current medications. Thank you for allowing us to participate in the care of this patient. The impression and plan of care has been dictated by Carol Cain, Nurse Practitioner as directed. Dr. Wilman MD I have performed a history and physical examination and medical decision making of this patient, discussed the same with the dictator, and agree with the dictators assessment and plan as written, documented as a scribe. Based on total visit time, I have performed more than 50% of this visit. Patient Condition at Discharge: Stable Plan - Discharge Summary Discharge Rx Participant: No New Discharge Prescriptions: New Apixaban [Eliquis] 5 mg PO BID #60 tab Continue Zinc 50 mg PO DAILY Magnesium Gluconate [Magonate] 500 mg PO DAILY [place] 500 mg PO TID Cholecalciferol (Vitamin D3) [Vitamin D3 (50 Mcg = 2000 Iu)] 50 mcg PO DIRECTED Cardio Miracle Powder 1 dose PO BID Nitroglycerin Sl Tabs [Nitrostat] 0.4 mg SL Q5M PRN PRN Reason: Chest Pain Changed Atorvastatin [Lipitor] 80 mg PO HS #0 Prasugrel [Effient] 10 mg PO DAILY #0 Metoprolol Succinate (ER) [Toprol XL] 25 mg PO DAILY #0 Discontinued Ibuprofen [Motrin Ib] 400 mg PO QID PRN PRN Reason: Pain Aspirin 81 mg PO DIRECTED Discharge Medication List Magnesium Gluconate [Magonate] 500 mg PO DAILY 04/29/20 [History] Zinc 50 mg PO DAILY 04/29/20 [History] Cholecalciferol (Vitamin D3) [Vitamin D3 (50 Mcg = 2000 Iu)] 50 mcg PO DIRECTED 09/11/24 [History] [place] 500 mg PO TID 09/11/24 [History] Cardio Miracle Powder 1 dose PO BID 10/08/24 [History] Nitroglycerin Sl Tabs [Nitrostat] 0.4 mg SL Q5M PRN 10/08/24 [History] Apixaban [Eliquis] 5 mg PO BID #60 tab 10/10/24 [Rx] Atorvastatin [Lipitor] 80 mg PO HS #0 10/10/24 [Rx] Metoprolol Succinate (ER) [Toprol XL] 25 mg PO DAILY #0 10/10/24 [Rx] Prasugrel [Effient] 10 mg PO DAILY #0 10/10/24 [Rx] Follow up Appointment(s)/Referral(s): Yana Joe MD [STAFF PHYSICIAN] - 1 Week Jose Salcedo MD [Primary Care Provider] - 1-2 days Patient Instructions/Handouts: A-fib (Atrial Fibrillation) (ED), Fall Prevention (ED) Discharge Disposition: HOME SELF-CARE
== END 2024-10-10 11:35 | disposition home or self-care (01) | DRG 282 ==
LOC: EC 04:55 → 3SCARD 07:53
PROVIDERS: ADMIT Hospitalist; ATTEND Hospitalist
PROC: 3E033RZ Introduction of Antiarrhythmic into Peripheral Vein, Percutaneous Approach (ICD-10-PCS; principal; 2024-10-08)
DX: I48.91 Unspecified atrial fibrillation (principal); I21.9 Acute myocardial infarction, unspecified; I35.0 Nonrheumatic aortic (valve) stenosis; R55 Syncope and collapse; E78.5 Hyperlipidemia, unspecified; S01.81XA Laceration without foreign body of other part of head, initial encounter; I25.10 Atherosclerotic heart disease of native coronary artery without angina pectoris; N40.0 Benign prostatic hyperplasia without lower urinary tract symptoms; H91.90 Unspecified hearing loss, unspecified ear; W18.30XA Fall on same level, unspecified, initial encounter; Z79.899 Other long term (current) drug therapy; Z79.82 Long term (current) use of aspirin; Z79.02 Long term (current) use of antithrombotics/antiplatelets; Z95.5 Presence of coronary angioplasty implant and graft; Z91.148 Patient's other noncompliance with medication regimen for other reason; Z98.1 Arthrodesis status
CPT/HCPCS: 12001; 36415; 70450; 71045; 80053; 80061; 84443; 84484; 85025; 85730; 93005; 93306; 96365; 96366; 96368; 99291